=== PATIENT | female | born 2000 | race Hispanic/Latino ===

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

== ENCOUNTER 2018-01-01 13:34 | Emergency (ER) | payer OTHER ==
[~2018-01-01] VITALS: Ht 165.1 cm; Wt 63.5 kg
[~2018-01-01 13:34] MED LIST changes: +CLEOCIN HCL300 M1 PO; +MOBIC15 M1 PO
[2018-01-01 13:42] VITALS: BP 114/77
--- NOTE | 2018-01-01 16:06 | ED GENERAL ADULT ---
History of Present Illness General Chief Complaint: Female Urogenital Problems Stated Complaint: BURNING W/URINATION, VAG BLEEDING X 2 WEEKS Source: patient Exam Limitations: no limitations Vital Signs & Intake/Output Vital Signs & Intake/Output Vital Signs Date Time Temp Pulse Resp B/P B/P Pulse O2 O2 Flow FiO2 Mean Ox Delivery Rate 01/01 1627 98 18 97 Room Air 01/01 1433 99 Room Air 01/01 1342 96.7 107 18 114/77 98 Room Air Room Air ED Intake and Output 01/02 0000 01/01 1200 Intake Total Output Total Balance Patient 140 lb Weight Weight Reported by Patient Measurement Method Allergies Coded Allergies: No Known Allergies (12/03/17) Reconcile Medications Phenazopyridine HCl (Pyridium) 100 MG TABLET 1 TAB PO TID PRN DYSURIA Triage Note: PT TO ED WITH C/O "I HAVE MY PERIOD FOR 2 WEEKS, AND IT VALDIVIA WHEN I PEE". URINE CUP GIVEN. Triage Nurses Notes Reviewed? yes Onset: Gradual Duration: week(s): (3-4), changing over time, continues in ED Timing: recent history Injury Environment: home Severity: mild, moderate Severity Numbers: 6 No Modifying Factors: none LMP (ages 10-50): now : No Patient currently breastfeeds: No HPI: 17-year-old female with no past medical history present for evaluation of dysuria and vaginal spotting. Patient states that for the past 3 weeks she has been spotting. She states that about a month ago she stopped receiving the depO shot. She has a history of dysfunctional uterine bleeding. She states that she is using one to 2 pads per day for the spotting. She denies any pelvic pain vaginal discharge back pain fever. She also reports he's been having intermittent dysuria. She states that she will notice pain at the end when she is finished urinating that'll last for several seconds and then go away. She describes as a burning pain. No frequency urgency. Does not happen every time she urinates. (Caden Judd) Past History Travel History Traveled to [place] past 21 day No Medical History Any Pertinent Medical History? see below for history Neurological: NONE EENT: NONE Cardiovascular: NONE Respiratory: NONE Gastrointestinal: NONE Hepatic: NONE Renal: NONE Musculoskeletal: NONE Psychiatric: NONE Endocrine: NONE Blood Disorders: NONE Cancer(s): NONE SUPERVISOR TAPING/Reproductive: NONE Surgical History Surgical History: non-contributory Psychosocial History What is your primary language Egyptian Tobacco Use: Current Daily Use Daily Tobacco Use Amount/Type: => 5 Cigarettes daily ETOH Use: denies use Illicit Drug Use: denies illicit drug use Family History Hx Contributory? No (Caden Judd) Review of Systems Review of Systems Constitutional: Reports: no symptoms. EENTM: Reports: no symptoms. Respiratory: Reports: no symptoms. Cardiovascular: Reports: no symptoms. GI: Reports: no symptoms. Genitourinary: Reports: see HPI, dysuria, pain. Musculoskeletal: Reports: no symptoms. Skin: Reports: no symptoms. Neurological/Psychological: Reports: no symptoms. Hematologic/Endocrine: Reports: no symptoms. Immunologic/Allergic: Reports: no symptoms. All Other Systems: Reviewed and Negative (Caden Judd) Physical Exam Physical Exam General Appearance: well developed/nourished, no apparent distress, alert, awake , thin Head: atraumatic, normal appearance Eyes: Bilateral: normal appearance, PERRL, EOMI. Ears, Nose, Throat: hearing grossly normal Neck: normal inspection, supple, full range of motion Respiratory: normal breath sounds, chest non-tender, no respiratory distress, lungs clear Cardiovascular: regular rate/rhythm, normal peripheral pulses Peripheral Pulses: 2+ radial (R), 2+ radial (L) Gastrointestinal: soft, non-tender Back: normal inspection, normal range of motion, NO cva TENDERNESS Extremities: normal inspection, normal range of motion, no edema Neurologic/Psych: no motor/sensory deficits, awake, alert, oriented x 3, normal gait, normal mood/affect Skin: intact, normal color, warm/dry Core Measures ACS in differential dx? No CVA/TIA Diagnosis: No Sepsis Present: No Sepsis Focused Exam Completed? No (Caden Judd) Progress Differential Diagnoses I considered the following diagnoses in my evaluation of the patient: [UTI, pyelonephritis, intrauterine , ectopic , threatened , PID, dysfunctional uterine bleeding, endometriosis] Plan of Care: Orders Procedure Date/time Status CULTURE,URINE 01/01 UNK Active Add-on Test (ER Only) 01/01 1502 Active Add-on Test (ER Only) 01/01 1420 Active URINE 01/01 1355 Complete URINALYSIS 01/01 1344 Complete Laboratory Tests 01/01/18 1359: Urine Color YEL, Urine Clarity HAZY H, Urine pH 6.0, Ur Specific [place] 1.025, Urine Protein TRACE H, Urine Ketones NEG, Urine Nitrite NEG, Urine Bilirubin NEG, Urine Urobilinogen 0.2, Ur Leukocyte Esterase NEG, Ur Microscopic SEDIMENT EXAMINED, Urine RBC RARE, Urine WBC 1-3 H, Ur Epithelial Cells MOD H, Urine Bacteria MOD H, Urine Mucus MANY H, Urine Hemoglobin LARGE H, Urine Glucose NEG 01/01/18 1355: Urine Test NEGATIVE Microbiology 01/01 UNK URINE ROUT: Urine Culture - RES Patient seen and evaluated. Her urinalysis is negative. She states she's been spotting for several weeks she has a history of similar symptoms. Urine is not showing major signs of infection. There are a large numbers of epithelial cells and only 1-3 white blood cells. No esterase or nitrites. Culture was sent. Patient is having intermittent dysuria does not occur on every time she urinates. A urine culture was sent patient will not be treated with antibiotics at this time. She'll be given a prescription for Pyridium to use as needed. Patient is here with her son and were both also being seen. She declines further blood work. She states she'll follow-up with her MANAGER ERP doctor. Discussed return the cautions advised to rest and drink plenty of fluids. Return with any concerns. Patient appears well she agrees. Initial ED EKG: none (Caden Judd) Departure Departure Disposition: HOME OR SELF CARE Condition: Stable Clinical Impression Primary Impression: Dysuria Referrals: Patient Has No Primary Care Dr (PCP/Family) Additional Instructions: Take Pyridium as directed. Drink plenty of fluids. Make a follow-up with your MANAGER ERP doctor as soon as possible. Monitor symptoms and return with any concerns. Departure Forms: Customer Survey General Discharge Information Prescriptions: Current Visit Scripts Phenazopyridine HCl (Pyridium) 1 TAB PO TID PRN DYSURIA #6 TAB (Caden Judd) PA/MEAT CARRIER Co-Sign Statement Statement: ED Attending supervision documentation- [] I saw and evaluated the patient. I have also reviewed all the pertinent lab results and diagnostic results. I agree with the findings and the plan of care as documented in the PA's/MEAT CARRIER's documentation. [X] I have reviewed the ED Record and agree with the PA's/MEAT CARRIER's documentation. [] Additions or exceptions (if any) to the PAs/MEAT CARRIER's note and plan are summarized below: [] (Sharon ARDON,Emma) Critical Care Note Critical Care Note Critical Care Time: non-applicable (Rudyd MCINTYRE,Caden)
[2018-01-01] MEDS ORDERED: PYRIDIUM100 M1 PO (16:10)
== END 2018-01-01 16:28 ==
LOC: ERH 13:34
DX: R30.0 Dysuria (principal); N93.9 Abnormal uterine and vaginal bleeding, unspecified
CPT/HCPCS: 81001; 81025; 87086

== ENCOUNTER 2018-02-01 12:49 | Emergency (ER) | payer OTHER ==
[~2018-02-01] VITALS: Ht 165.1 cm; Wt 63.5 kg
[~2018-02-01 12:49] MED LIST changes: +GI COCKTAIL PO; +MEDROL4 M2 PO; +PYRIDIUM100 M1 PO
--- NOTE | 2018-02-01 13:22 | ED GENERAL ADULT ---
History of Present Illness General Chief Complaint: Lower Extremity Injury Stated Complaint: ?BILATERAL THIGH PAIN Source: patient Exam Limitations: no limitations Vital Signs & Intake/Output Vital Signs & Intake/Output Vital Signs Date Time Temp Pulse Resp B/P B/P Pulse O2 O2 Flow FiO2 Mean Ox Delivery Rate 02/01 1310 97.6 93 16 108/75 100 Room Air Allergies Coded Allergies: No Known Allergies (12/03/17) Triage Note: PT STATES SHE HAS PAIN TO THE LEFT UPPER THIGH. PT STATES SHE TOOK A MUSCLE RELAXER. PT STATES THAT SHE CANT SIT ON IT.. PT DENIES TRAUMA. PT ALSO STATES HER RIGHT THIGH. PT DENIES CONTROL. ONSET 2 WEEKS AGO. Triage Nurses Notes Reviewed? yes Onset: Gradual Duration: week(s): (2) Timing: no prior history Injury Environment: home Severity: moderate Severity Numbers: 6 Modifying Factors: Improves With: immobilization. Worsens With: movement. : No Patient currently breastfeeds: No HPI: Patient is a 17-year-old female presenting to the emergency department with chief complaint of bilateral posterior thigh pain and low back pain is been going on for 2 weeks. Movement makes the pain worse nothing seems to make it better. Patient denies any nausea or vomiting fevers chills chest pain or shortness of breath. No abdominal pain. Denies any urinary frequency or urgency or dysuria. She took one dose of Tylenol yesterday without relief. She then sat a dose of a muscle relaxer that someone gave her this morning without relief. Pain is tight and spasming in nature. Currently mild to moderate. Denies any new workout plans, no excessive lifting. Denies any Jeri weakness numbness or tingling. (Jordan MCINTYRE,Gabi) Reconcile Medications Methocarbamol (Robaxin) 500 MG TABLET 1 TAB PO TID PRN MUSCLE SPASMS Naproxen (Naprosyn) 500 MG TABLET 1 TAB PO BID PRN PAIN (Sharon ARDON,Emma) Past History Travel History Traveled to [place] past 21 day No Medical History Any Pertinent Medical History? see below for history Neurological: NONE EENT: NONE Cardiovascular: NONE Respiratory: NONE Gastrointestinal: NONE Hepatic: NONE Renal: NONE Musculoskeletal: NONE Psychiatric: NONE Endocrine: NONE Blood Disorders: NONE Cancer(s): NONE PR INTERN/Reproductive: NONE Surgical History Surgical History: non-contributory Psychosocial History What is your primary language Indonesian Tobacco Use: Current Daily Use Daily Tobacco Use Amount/Type: => 5 Cigarettes daily Family History Hx Contributory? No (Gabi Santos) Review of Systems Review of Systems Constitutional: Reports: no symptoms. Comments Review of systems: See HPI, All other systems negative. Constitutional, no chills fever or weight loss HEENT: No visual changes no sore throat no congestion Cardiovascular: No chest pain ,palpitation , orthopnea or ankle swelling Skin, no jaundice no rashes Respiratory: No dyspnea cough sputum or hemoptysis GI: No nausea no vomiting : No dysuria No hematuria Muscle skeletal: no neck pain, Neurologic: No numbness no confusion NO HEADACHES Psych: No stress anxiety or depression,. Heme/endocrine: No bruising no bleeding no polyuria or polydipsia Immunology: No splenectomy or history of AIDS (Gabi Santos) Physical Exam Physical Exam General Appearance: well developed/nourished, no apparent distress, alert, awake , comfortable Comments: Well-developed well-nourished person in no acute distress HEENT: Normal inspection Neck: Atraumatic, normocephalic Back: Mild tenderness to palpation in the lumbar paraspinal muscles bilaterally. No midline tenderness. Negative straight leg raise bilaterally. Mild reproducible pain on the posterior aspect of thighs bilaterally. No signs of trauma. Cardiovascular: Regular rate and rhythms no murmurs rubs or gallops, normal JVP Respiratory: Chest nontender. No respiratory distress.breath sounds clear to auscultation bilaterally Abdomen: Soft, nontender nondistended, no appreciable organomegaly. Normal bowel sounds. No ascites Extremity: No edema, no calf tenderness to palpation, normal and equal pulses. Pain in the posterior aspect of the legs with back flexion. Neuro: Alert oriented x3, motor sensory normal Skin: No appreciable rash on exposed skin, skin is warm and dry. Psych: Mood and affect is normal, memory and judgment is normal. Core Measures ACS in differential dx? No CVA/TIA Diagnosis: No Sepsis Present: No Sepsis Focused Exam Completed? No (Gabi Santos) Progress Differential Diagnoses I considered the following diagnoses in my evaluation of the patient: Muscle strain, muscle spasm, sciatica, herniated disc Plan of Care: Orders Procedure Date/time Status URINE 02/01 1322 Complete URINALYSIS 02/01 1322 Complete Laboratory Tests 02/01/18 1330: Urinalysis LIGHT H, Urine Color YEL, Urine Clarity HAZY H, Urine pH 6.0, Ur Specific [place] 1.025, Urine Protein NEG, Urine Ketones NEG, Urine Nitrite NEG, Urine Bilirubin NEG, Urine Urobilinogen 0.2, Ur Leukocyte Esterase NEG, Ur Microscopic SEDIMENT EXAMINED, Urine RBC RARE, Urine WBC RARE, Ur Epithelial Cells MANY H, Urine Bacteria RARE H, Urine Mucus MANY H, Urine Hemoglobin NEG , Urine Glucose NEG, Urine Test NEGATIVE 02/01/2018 1:32:20 PM WELLS criteria is low risk FOR DVT. 02/01/2018 2:05:20 PM patient is feeling improved after Toradol. Patient will be sent home on anti-inflammatories. Low risk for Wells criteria. No signs of rhabdo. No protein in the urine. Patient will follow up with PCP for any worsening symptoms or concerns. Initial ED EKG: none (Gabi Santos) Departure Departure Time of Disposition: 1406 Disposition: HOME OR SELF CARE Condition: Stable Clinical Impression Primary Impression: Muscle strain Referrals: Patient Has No Primary Care Dr (PCP/Family) Additional Instructions: Follow-up with your primary care physician call to make an appointment. See them in follow-up in the next 5-7 days. Return for worsening symptoms or concerns. Take anti-inflammatories on a regular basis for the next 4-5 days. Avoid any excessive heavy lifting. Departure Forms: Customer Survey General Discharge Information Prescriptions: Current Visit Scripts Naproxen (Naprosyn) 1 TAB PO BID PRN PAIN #20 TAB Methocarbamol (Robaxin) 1 TAB PO TID PRN MUSCLE SPASMS #20 TAB (Gabi Santos) PA/PRE OWNED SALES MANAGER Co-Sign Statement Statement: ED Attending supervision documentation- [] I saw and evaluated the patient. I have also reviewed all the pertinent lab results and diagnostic results. I agree with the findings and the plan of care as documented in the PA's/PRE OWNED SALES MANAGER's documentation. [X] I have reviewed the ED Record and agree with the PA's/PRE OWNED SALES MANAGER's documentation. [] Additions or exceptions (if any) to the PAs/PRE OWNED SALES MANAGER's note and plan are summarized below: [] (Sharon ARDON,Emma) Critical Care Note Critical Care Note Critical Care Time: non-applicable (Jordan MCINTYREGabi)
[2018-02-01] MEDS ORDERED: ROBAXIN500 M1 PO (14:09)
[2018-02-01] MEDS ORDERED: NAPROSYN500 M1 PO (14:09)
[2018-02-01 14:14] VITALS: BP 106/67
== END 2018-02-01 14:15 ==
LOC: ERH 12:49
DX: S86.811A Strain of other muscle(s) and tendon(s) at lower leg level, right leg, initial encounter (principal); S86.812A Strain of other muscle(s) and tendon(s) at lower leg level, left leg, initial encounter; X58.XXXA Exposure to other specified factors, initial encounter; Y92.9 Unspecified place or not applicable; Y93.9 Activity, unspecified
CPT/HCPCS: 81001; 81025; 96372; J1885

== ENCOUNTER 2018-03-10 | Emergency (ER) | payer OTHER ==
[~2018-03-10] MED LIST changes: +NAPROSYN500 M1 PO; +ROBAXIN500 M1 PO
--- NOTE | 2018-03-10 00:03 | ED CARDIAC/CP/PALPITATIONS ---
History of Present Illness General Chief Complaint: Chest Pain Stated Complaint: CP HURTS WHEN I BREATH Source: patient Exam Limitations: no limitations Vital Signs & Intake/Output Vital Signs & Intake/Output Vital Signs Date Time Temp Pulse Resp B/P B/P Pulse O2 O2 Flow FiO2 Mean Ox Delivery Rate 03/10 0020 97 Room Air 03/10 0011 74 20 109/66 100 Allergies Coded Allergies: No Known Allergies (12/03/17) Reconcile Medications No Known Home Medications Triage Nurses Notes Reviewed? yes Onset: Gradual Duration: day(s):, waxing and waning Timing: recent history Quality/Severity: mild Location: central Radiation: no radiation Activities at Onset: none Prior Chest Pain/Card Workup: no prior chest pain Associated Symptoms: chest tightness, anxiety HPI: 18 yo woman presents with central chest tightness x 2 days intermittently. She notes, "I had chest pain for several hours last night and then fell asleep... I was fine during the day and then tonight it happened again... I felt a tightness in my chest and my anxiety got real bad." She notes worsening pain with deep inspiration. She has no wheeze, cough, fever, chills, weakness. Past History Medical History Any Pertinent Medical History? 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 No Review of Systems Review of Systems Constitutional: Reports: no symptoms. EENTM: Reports: no symptoms. Respiratory: Reports: no symptoms. Cardiovascular: Reports: no symptoms. GI: Reports: no symptoms. Genitourinary: Reports: no symptoms. Musculoskeletal: Reports: no symptoms. Skin: Reports: no symptoms. Neurological/Psychological: Reports: no symptoms. Hematologic/Endocrine: Reports: no symptoms. Immunologic/Allergic: Reports: no symptoms. All Other Systems: Reviewed and Negative Physical Exam Physical Exam General Appearance: well developed/nourished, anxious Head: atraumatic, normal appearance Eyes: Bilateral: normal appearance. Ears, Nose, Throat: normal pharynx, normal ENT inspection Neck: normal inspection, supple, full range of motion Respiratory: normal breath sounds, chest non-tender, no respiratory distress, quiet respiration Cardiovascular: regular rate/rhythm Gastrointestinal: normal bowel sounds, soft, non-tender Back: normal inspection, normal range of motion Extremities: normal inspection, normal capillary refill, normal range of motion, no edema Neurologic/Psych: no motor/sensory deficits, awake, alert, oriented x 3 Skin: intact, normal color, warm/dry Core Measures ACS in differential dx? No CVA/TIA Diagnosis No Sepsis Present: No Sepsis Focused Exam Completed? No Progress Differential Diagnosis: anxiety vs costochondritis vs other. Plan of Care: Orders Procedure Date/time Status TROPONIN LEVEL 03/10 23 Complete HUMAN BETA HCG SCREEN 03/10 23 Complete D-DIMER 03/10 23 Complete COMPREHENSIVE METABOLIC PANEL 03/10 23 Complete CBC WITHOUT DIFFERENTIAL 03/10 23 Complete EKG 03/10 2018 Active Laboratory Tests 03/10/18 0032: Anion Gap 11, Estimated GFR > 60, BUN/Creatinine Ratio 14.3, Glucose 101 H, Calcium 9.1, Total Bilirubin 0.3, AST 12 L, ALT 17, Alkaline Phosphatase 76, Troponin I < 0.01, Total Protein 7.3, Albumin 4.0, Globulin 3.3, Albumin/ Globulin Ratio 1.2, Total Beta HCG NEGATIVE, D-Dimer High Sensitivty < 200, CBC w Diff NO MAN DIFF REQ, RBC 4.03 L, MCV 89.2, MCH 29.8, MCHC 33.5, RDW 13.0, MPV 9.5, Gran % 60.4, Lymphocytes % 27.3, Monocytes % 6.7, Eosinophils % 5.1 H, Basophils % 0.5, Absolute Granulocytes 5.9, Absolute Lymphocytes 2.6, Absolute Monocytes 0.7 H, Absolute Eosinophils 0.5, Absolute Basophils 0 Diagnostic Imaging: Viewed by Me: Radiology Read. Discussed w/RAD: Radiology Read. CXR Impression: PATIENT: MONICA MEDINA PRESENT AGE: 18 PATIENT ACCOUNT NO: [id number] : 98 LOCATION: [facility] ORDERING PHYSICIAN: Chino Kothari MD SERVICE DATE: 03/10/18 EXAM TYPE: RAD - XRY- CHEST XRAY, TWO VIEWS EXAMINATION: XR CHEST CLINICAL INFORMATION: Chest pain COMPARISON: None TECHNIQUE: 2 views of the chest were obtained. FINDINGS: The lungs are well expanded. There is no focal consolidation, edema, or effusion. No pneumothorax. The cardiomediastinal silhouette is within normal limits. No acute osseous abnormality. IMPRESSION: No acute pulmonary finding. DICTATED BY: Mason Dempsey MD DATE/TIME DICTATED:03/10/18145 ARMHOLE BASTER HAND: TUAN DATE/TIME TRANSCRIBED:03/10/18145 CONFIDENTIAL, DO NOT COPY WITHOUT APPROPRIATE AUTHORIZATION. <Electronically signed in Other Vendor System> SIGNED BY: Mason Dempsey MD 03/10/18 0150 Initial ED EKG: normal axis, normal intervals, normal p-waves, normal QRS complex, normal sinus rhythm Departure Departure Disposition: HOME OR SELF CARE Condition: Stable Clinical Impression Primary Impression: Chest pain Referrals: Patient Has No Primary Care Dr (PCP/Family) Departure Forms: Customer Survey General Discharge Information Prescriptions: Current Visit Scripts No Known Home Medications Comments 03/10/18, 2:01... discussed with patient at length, pt feeling well, benign xrays/ labs, pt safe for discharge. pt referred to primary care. Critical Care Note Critical Care Note Critical Care Time: non-applicable
[2018-03-10 00:39] LABS: ABSOLUTE BASOPHIL COUNT 0 /CUMM (0.0-0.2); ABSOLUTE EOSINOPHIL COUNT 0.5 /CUMM (0.0-0.7); ABSOLUTE GRANULOCYTE CT 5.9 /CUMM (1.4-6.5); ABSOLUTE LYMPH COUNT 2.6 /CUMM (1.2-3.4); ABSOLUTE MONOCYTE COUNT 0.7 /CUMM (0.10-0.60); BASOPHIL % 0.5 % (0.0-2.0); EOSINOPHIL % 5.1 % (0-5); GRANULOCYTE % 60.4 % (42.2-75.2); HEMATOCRIT 35.9 % (37-47); MEAN CORPUSCULAR HGB 29.8 PG (27.0-31.0); MEAN CORPUSCULAR HGB CONC 33.5 G/DL (33.0-37.0); MEAN CORPUSCULAR VOLUME 89.2 FL (81.0-99.0); MEAN PLATELET VOLUME 9.5 FL (7.4-10.4); PLATELET COUNT 207 /CUMM (130-400); RED BLOOD CELL CT 4.03 /CUMM (4.20-5.40); WHITE BLOOD CELL COUNT 9.7 /CUMM (4.8-10.8)
--- NOTE | 2018-03-10 01:50 | RADIOLOGY REPORT ---
EXAMINATION: XR CHEST CLINICAL INFORMATION: Chest pain COMPARISON: None TECHNIQUE: 2 views of the chest were obtained. FINDINGS: The lungs are well expanded. There is no focal consolidation, edema, or effusion. No pneumothorax. The cardiomediastinal silhouette is within normal limits. No acute osseous abnormality. IMPRESSION: No acute pulmonary finding.
[2018-03-10 02:18] VITALS: BP 118/72
[2018-03-18] MEDS ORDERED: MOBIC15 M1 PO (13:27)
[2018-03-18] MEDS ORDERED: XANAX0.25 M1 PO (13:29)
[2018-03-22] MEDS ORDERED: AUGMENTIN 875-1 EACH PO (08:41)
[2018-03-22] MEDS ORDERED: PERCOCET 5-3251 EACH PO (08:41)
[2018-04-03] MEDS ORDERED: PERCOCET 5-3251 EACH PO (14:27)
[2018-04-09] MEDS ORDERED: AUGMENTIN 875-1 EACH PO (15:28)
[2018-07-04] MEDS ORDERED: MEDROL4 M2 PO (18:15)
[2018-07-04] MEDS ORDERED: CYCLOBENZAPRINE10 M1 PO (18:15)
[2018-07-04] MEDS ORDERED: IBUPROFEN800 M1 PO (18:15)
[2018-07-06] MEDS ORDERED: PERCOCET 5-3251 EACH PO (14:46)
== END 2018-03-10 02:20 ==
LOC: ERH
PROVIDERS: Pediatrics
DX: R07.89 Other chest pain (principal)
CPT/HCPCS: 71046; 93005; 93010

== ENCOUNTER 2018-03-29 10:37 | Inpatient (IN) | payer OTHER ==
[~2018-03-29] VITALS: Ht 167.6 cm; Wt 61.3 kg
[~2018-03-29 10:37] MED LIST changes: +PERCOCET 5-3251 EACH PO; +XANAX0.25 M1 PO
--- NOTE | 2018-03-29 11:31 | ED UPPER/LOWER EXTREMITY COMPL ---
See Addendum History of Present Illness General Chief Complaint: Lower Extremity Problems Stated Complaint: RIGHT UPPER LEG PAIN COMES AND GOES X1 YEAR Source: patient Exam Limitations: no limitations Vital Signs & Intake/Output Vital Signs & Intake/Output Vital Signs Date Time Temp Pulse Resp B/P B/P Pulse O2 O2 Flow FiO2 Mean Ox Delivery Rate 03/29 1645 98.3 97 20 123/81 100 03/29 1258 62 18 115/73 99 Room Air 03/29 1050 98.1 78 18 114/68 97 Room Air Allergies Coded Allergies: No Known Allergies (12/03/17) Reconcile Medications Alprazolam (Xanax) 0.25 MG TABLET 1 TAB PO DAILY PRN anxiety Amoxicillin/Potassium Clav (Augmentin 875-125 Tablet) 875 MG-125 MG TABLET 1 TAB PO BID PNEUMONIA Meloxicam (Mobic) 15 MG TABLET 1 TAB PO DAILY PRN pain Oxycodone HCl/Acetaminophen (Percocet 5-325 MG Tablet) 5 MG-325 MG TABLET 1-2 TAB PO Q6P PRN PAIN Triage Note: 18 YEAR OLD FEMALE STATES THAT SHE HAS BEEN HAVING INTERMITTANT R HIP ACHING OVER THE PAST YEAR, STARTED TO BOTHER HER AGAIN 2 DAYS AGO. DECLINES MEDS AT TRIAGE Triage Nurses Notes Reviewed? yes Onset: Abrupt Duration: 1 year Timing: recent history Severity: moderate, severe Pain/Injury Location: Right: Hip. No Modifying Factors: none : No Patient currently breastfeeds: No HPI: 18-year-old female comes into the emergency room for further evaluation of right hip pain. Patient reports that this is been going on for about a year. She has pain located from the upper aspect of her right hip that radiates down her right thigh. Denies any numbness or tingling. Denies any associated low back pain. Patient was recently seen here 3 times for chest pains. She was found to have a pneumonia and was started on oral antibiotics. She had a negative d-dimer and had multiple chest pain workup which were unremarkable. She reports that she is still experiencing some chest pain symptoms at times and she ran out of the oxycodone that she was on which was helping with the pain. She has an appointment with pulmonary doctor for follow-up. (Ben MCINTYRE,Cole) Past History Travel History Traveled to [place] past 21 day No Medical History Any Pertinent Medical History? see below for history Neurological: NONE EENT: NONE Cardiovascular: NONE Respiratory: NONE Gastrointestinal: NONE Hepatic: NONE Renal: NONE Musculoskeletal: NONE Psychiatric: NONE Endocrine: NONE Blood Disorders: NONE Cancer(s): NONE TREASURY SPECIALIST/Reproductive: NONE Surgical History Surgical History: non-contributory Psychosocial History What is your primary language Spanish Tobacco Use: Never used ETOH Use: denies use Illicit Drug Use: denies illicit drug use Family History Hx Contributory? No (Cole Jama) Review of Systems Review of Systems Constitutional: Reports: no symptoms. EENTM: Reports: no symptoms. Respiratory: Reports: no symptoms. Cardiovascular: Reports: see HPI. Gastrointestinal/Abdominal: Reports: no symptoms. Genitourinary: Reports: no symptoms. Musculoskeletal: Reports: see HPI. Skin: Reports: no symptoms. Neurological/Psychological: Reports: no symptoms. Hematologic/Endocrine: Reports: no symptoms. Immunological: Reports: no symptoms. All Other Systems: Reviewed and Negative (Cole Jama) Physical Exam Physical Exam General Appearance: well developed/nourished, mild distress Head: atraumatic Eyes: Bilateral: normal appearance. Ears, Nose, Throat: normal ENT inspection, hearing grossly normal Neck: normal inspection Cardiovascular/Respiratory: normal breath sounds, regular rate/rhythm, no respiratory distress Back: normal inspection Hip Right: normal range of motion, normal inspection, soft tissue tenderness, Lidocaine patch and platelets Neurologic/Tendon: normal sensation, normal motor functions, normal tendon functions, responds to pain, no evidence tendon injury Skin: intact, normal color, warm/dry Diagram Legs Front/Back 1) (Cole Jama) Progress Differential Diagnosis: contusion, dislocation, fracture, sprain, tendon injury, pe, costonchondritits, pericarditis Plan of Care: Orders Procedure Date/time Status Heart Healthy Diet 03/30 B Active Add-on Test (ER Only) 03/29 1726 Active ED Holding Orders 03/29 1715 Active Admit to inpatient 03/29 1715 Active Vital Signs 03/29 1715 Active Code Status 03/29 1715 Active Patient Data 03/29 1640 Active Patient Data 03/29 1636 Active Add-on Test (ER Only) 03/29 1555 Active Add-on Test (ER Only) 03/29 1530 Active US-EXT BILAT VENOUS DOPPLER 03/29 1517 Active PARTIAL THROMBOPLASTIN TIME 03/29 1246 Complete PROTHROMBIN TIME 03/29 1246 Complete D-DIMER 03/29 1246 Complete TROPONIN LEVEL 03/29 1240 Complete COMPREHENSIVE METABOLIC PANEL 03/29 124 Complete CBC WITHOUT DIFFERENTIAL 03/29 124 Complete EKG 03/29 124 Active Current Medications Sig/Stephanie Start time Last Medication Dose Stop Time Status Admin Heparin Sodium 25,000 UNIT Q24H 03/29 1530 UNVr 03/29 (Porcine) 1628 (Heparin) Sodium Chloride 500 ML Laboratory Tests 03/29/18 1246: Anion Gap 14, Estimated GFR > 60, BUN/Creatinine Ratio 17.5, Glucose 98, Calcium 9.8, Total Bilirubin 0.4, AST 14, ALT 16, Alkaline Phosphatase 77, Troponin I < 0.01, Total Protein 8.1, Albumin 4.4, Globulin 3.7, Albumin/Globulin Ratio 1.2, PT 13.9 H, INR 1.27 H, APTT 33, D-Dimer High Sensitivty 294 H, CBC w Diff NO MAN DIFF REQ, RBC 4.11 L, MCV 87.7, MCH 29.5, MCHC 33.7, RDW 13.1, MPV 9.2, Gran % 62.0, Lymphocytes % 26.4, Monocytes % 7.1, Eosinophils % 4.1, Basophils % 0.4, Absolute Granulocytes 3.6, Absolute Lymphocytes 1.5, Absolute Monocytes 0.4 , Absolute Eosinophils 0.2, Absolute Basophils 0 03/29/18 1245: Total Beta HCG Cancelled 03/29/18 1130: Urine Test Cancelled 03/29/18 1114: TSH Cancelled Diagnostic Imaging: Viewed by Me: Radiology Read. Discussed w/RAD: Radiology Read. Radiology Impression: PATIENT: MONICA MEDINA PRESENT AGE: 18 PATIENT ACCOUNT NO: [id number] : 98 LOCATION: [facility] ORDERING PHYSICIAN: Cole MCINTYRE SERVICE DATE: 03/29/18 EXAM TYPE: CAT - CTA CHEST-PULMONARY EMBOLISM EXAMINATION: CT ANGIOGRAM CHEST WITHOUT AND WITH CONTRAST (CT PULMONARY ANGIOGRAM FOR PE) CLINICAL INFORMATION: Left-sided chest pain for weeks, recently here for pneumonia. COMPARISON: Noncontrast CT of the chest done on 03/22/2018. TECHNIQUE: Prior to contrast administration, noncontrast localization images were obtained. Subsequently, multidetector volumetric imaging was performed from the thoracic inlet to below the diaphragms following the administration of 60 mL Optiray 320 intravenous contrast. No contrast reaction reported. Sagittal, coronal, and MIP oblique sagittal reformatted images were obtained on the CT workstation, uploaded to PACS, and reviewed. Total exam dose-length product 174 mGy-cm. FINDINGS: QUALITY OF STUDY/ CONTRAST BOLUS: Satisfactory PULMONARY ARTERIES: There is no central or segmental pulmonary emboli identified. However, at left lower lobe, there are 2 subtle intraluminal filling defects identified within the subsegmental branches of the left lower lobar pulmonary artery (see the gao images), consistent with subtle pulmonary embolism. THORACIC AORTA: No aneurysm or dissection. LUNG: There is a cavitary lesion identified within the posterior superior aspect of left upper lobe of the lung, currently measures 1.6 x 1.2 cm, previously measured 2.3 x 2.4 cm. The second cavitary lesion at left lower lobe of the lung posteromedially currently measures 2.5 x 1.9 cm, previously measured 3.3 x 2.2 cm. The remainder of the lung gonzalez remain clear. The tracheobronchial tree appears patent. PLEURA: No pleural effusion or pneumothorax. MEDIASTINUM: Normal heart size. No pericardial effusion. No hilar or mediastinal lymphadenopathy. No evidence of septal bowing or right heart strain. Small linear soft tissue density is noted within the anterior mediastinum, most consistent with residual thymic tissue. CHEST WALL/AXILLA: No axillary or internal mammary lymphadenopathy. OSSEOUS STRUCTURES: No acute or suspicious osseous abnormality. UPPER ABDOMEN: Unremarkable. No reflux of contrast into the hepatic veins to suggest elevated right heart pressures. IMPRESSION: 1. There is no central or segmental pulmonary emboli identified. However, at left lower lobe, there are 2 subtle intraluminal filling defects visualized within the subsegmental branches of the left lower lobar pulmonary artery, consistent with subtle pulmonary embolism. 2. Previously documented cavitary lesion seen at left upper and left lower lobe of the lung shows interval decrease in size since most recent prior noncontrast CT of the chest done on 03/22/2018. 3. No other significant interval change. This critical result was discussed with FRANCISCO JAVIER Hart at 2:56 PM on 03/29/2018 and it was ascertained that the content and urgency of the report was understood at the time of direct communication. VTE: Positive DICTATED BY: Gin Roberts MD DATE/TIME DICTATED:03/29/181431 GOVERNMENT GAUGER:TUAN DATE/TIME TRANSCRIBED:03/29/181431 CONFIDENTIAL, DO NOT COPY WITHOUT APPROPRIATE AUTHORIZATION. <Electronically signed in Other Vendor System> SIGNED BY: Gin Roberts MD 03/29/18 1501, PATIENT: MONICA MEDINA PRESENT AGE: 18 PATIENT ACCOUNT NO: [id number] : 98 LOCATION: [facility] ORDERING PHYSICIAN: Cole MCINTYRE SERVICE DATE: 03/29/181129 EXAM TYPE: RAD - XRY-HIP 2-3 VIEWS, RIGHT EXAMINATION: XR HIP, RIGHT CLINICAL INFORMATION: Right hip pain. COMPARISON: None. TECHNIQUE: Two views of the right hip. FINDINGS: Bones and soft tissues are normal. No fracture. Alignment is anatomic. Hip joint space is maintained. IMPRESSION: Unremarkable radiographic appearance of the right hip. DICTATED BY: Gin Roberts MD DATE/ TIME DICTATED:03/29/181225 GOVERNMENT GAUGER:TUAN DATE/TIME TRANSCRIBED: 03/29/181225 CONFIDENTIAL, DO NOT COPY WITHOUT APPROPRIATE AUTHORIZATION. < Electronically signed in Other Vendor System> SIGNED BY: Gin Roberts MD 03/29/18 1230 Initial ED EKG: normal sinus rhythm, rate (59), ST elevation likely consistent with early repolarization, appears unchanged from previous EKG, reviewed with Dr. Hammonds, (Ben MCINTYRE,Cole) Departure Departure Disposition: HOME OR SELF CARE Condition: Stable Clinical Impression Primary Impression: Pulmonary embolism Secondary Impressions: Iliotibial band syndrome of right side, Pneumonia Referrals: Yesy ARDON,Cortes Dyer Patient Has No Primary Care Dr (PCP/Family) Additional Instructions: Take ibuprofen for pain. Take Percocet as prescribed. Follow-up with physical therapy. Return if any concerns worsening symptoms. Please go over all results of today's visit with your primary care doctor. Contact your primary care doctor to let them know you were here in the emergency room. There may be nonspecific findings which may not be related to your visit today here in the emergency room but may require further evaluation and chronic monitoring by your primary care doctor. If you had a laceration today the chance of foreign body always remains. You should follow-up with your primary care doctor for recheck in 3-5 days for a wound check. If you had an x-ray done there is a chance that a fracture could have been missed on initial read and you should follow-up with your primary care doctor for repeat x-rays if symptoms persist. If your blood pressure was elevated here in the emergency room please have rechecked by our primary care doctor within the next 48. If you were prescribed a narcotic here in the emergency room or any type of controlled substances you're not allowed to drive while taking this medication or operate any type of heavy machinery. Narcotics can make you feel lightheaded dizziness nausea and can cause constipation. You may need to cook pickled meat a stool softener. Thank you for choosing [facility] emergency room. Please return to the emergency room immediately if you have any other concerns worsening of symptoms. Departure Forms: Customer Survey General Discharge Information (Cole Jama) Admission Note Spoke With: Shimon Bob MD Documentation of Exam: Documentation of any treatments & extenuating circumstances including Concerns Regarding Discharge (functional status, medication knowledge or non-compliance, living conditions, etc.) that warrant an admission rather than observation: [The patient needs admission for anticoagulation, pulmonary consultation, consider hematology consultation] I've seen and personally examined the patient. She is a 18-year-old female presents several visits for ongoing left lower chest pain. Well's score is low risk, PERC score is negative, and she had a negative d-dimer. Because the pain has persisted for some time, CTA was done which reveals subsegmental pulmonary embolism, she is being admitted to the hospital for further care. (Hank Hammonds DO)
--- NOTE | 2018-03-29 12:30 | RADIOLOGY REPORT ---
EXAMINATION: XR HIP, RIGHT CLINICAL INFORMATION: Right hip pain. COMPARISON: None. TECHNIQUE: Two views of the right hip. FINDINGS: Bones and soft tissues are normal. No fracture. Alignment is anatomic. Hip joint space is maintained. IMPRESSION: Unremarkable radiographic appearance of the right hip.
[2018-03-29 13:03] LABS: ABSOLUTE BASOPHIL COUNT 0 /CUMM (0.0-0.2); ABSOLUTE EOSINOPHIL COUNT 0.2 /CUMM (0.0-0.7); ABSOLUTE GRANULOCYTE CT 3.6 /CUMM (1.4-6.5); ABSOLUTE LYMPH COUNT 1.5 /CUMM (1.2-3.4); ABSOLUTE MONOCYTE COUNT 0.4 /CUMM (0.10-0.60); BASOPHIL % 0.4 % (0.0-2.0); EOSINOPHIL % 4.1 % (0-5); HEMATOCRIT 36.1 % (37-47); MEAN CORPUSCULAR HGB 29.5 PG (27.0-31.0); MEAN CORPUSCULAR HGB CONC 33.7 G/DL (33.0-37.0); MEAN CORPUSCULAR VOLUME 87.7 FL (81.0-99.0); MEAN PLATELET VOLUME 9.2 FL (7.4-10.4); PLATELET COUNT 289 /CUMM (130-400); RBC DISTRIBUTION WIDTH 13.1 % (11.5-14.5); RED BLOOD CELL CT 4.11 /CUMM (4.20-5.40); WHITE BLOOD CELL COUNT 5.9 /CUMM (4.8-10.8)
--- NOTE | 2018-03-29 15:01 | CT SCAN REPORT ---
EXAMINATION: CT ANGIOGRAM CHEST WITHOUT AND WITH CONTRAST (CT PULMONARY ANGIOGRAM FOR PE) CLINICAL INFORMATION: Left-sided chest pain for weeks, recently here for pneumonia. COMPARISON: Noncontrast CT of the chest done on 03/22/2018. TECHNIQUE: Prior to contrast administration, noncontrast localization images were obtained. Subsequently, multidetector volumetric imaging was performed from the thoracic inlet to below the diaphragms following the administration of 60 mL Optiray 320 intravenous contrast. No contrast reaction reported. Sagittal, coronal, and MIP oblique sagittal reformatted images were obtained on the CT workstation, uploaded to PACS, and reviewed. Total exam dose-length product 174 mGy-cm. FINDINGS: QUALITY OF STUDY/CONTRAST BOLUS: Satisfactory PULMONARY ARTERIES: There is no central or segmental pulmonary emboli identified. However, at left lower lobe, there are 2 subtle intraluminal filling defects identified within the subsegmental branches of the left lower lobar pulmonary artery (see the gao images), consistent with subtle pulmonary embolism. THORACIC AORTA: No aneurysm or dissection. LUNG: There is a cavitary lesion identified within the posterior superior aspect of left upper lobe of the lung, currently measures 1.6 x 1.2 cm, previously measured 2.3 x 2.4 cm. The second cavitary lesion at left lower lobe of the lung posteromedially currently measures 2.5 x 1.9 cm, previously measured 3.3 x 2.2 cm. The remainder of the lung gonzalez remain clear. The tracheobronchial tree appears patent. PLEURA: No pleural effusion or pneumothorax. MEDIASTINUM: Normal heart size. No pericardial effusion. No hilar or mediastinal lymphadenopathy. No evidence of septal bowing or right heart strain. Small linear soft tissue density is noted within the anterior mediastinum, most consistent with residual thymic tissue. CHEST WALL/AXILLA: No axillary or internal mammary lymphadenopathy. OSSEOUS STRUCTURES: No acute or suspicious osseous abnormality. UPPER ABDOMEN: Unremarkable. No reflux of contrast into the hepatic veins to suggest elevated right heart pressures. IMPRESSION: 1. There is no central or segmental pulmonary emboli identified. However, at left lower lobe, there are 2 subtle intraluminal filling defects visualized within the subsegmental branches of the left lower lobar pulmonary artery, consistent with subtle pulmonary embolism. 2. Previously documented cavitary lesion seen at left upper and left lower lobe of the lung shows interval decrease in size since most recent prior noncontrast CT of the chest done on 03/22/2018. 3. No other significant interval change. This critical result was discussed with FRANCISCO JAVIER Hart at 2:56 PM on 03/29/2018 and it was ascertained that the content and urgency of the report was understood at the time of direct communication. VTE: Positive
[2018-03-29 15:58] LABS: PT 13.9 SEC (9.4-12.5); PTT 33 SEC (25-37)
--- NOTE | 2018-03-29 16:45 | History & Physical ---
Esteban ARDON,Charley 03/29/18 5206: General Information and HPI MD Statement: I have seen and personally examined MONICA MEDINA and documented this H&P. The patient is a 18 year old F who presented with a patient stated chief complaint of [chest pain]. Source of Information: patient Exam Limitations: no limitations History of Present Illness: Ms. Medina is a 18-year-old lady with no significant past medical history presents with chest pain that has been going on for the past 2 weeks. She was seen at [facility] multiple times for similar complaint, blood workup and CAT scan chest was done and she was discharged home on pain medications and Augmentin to complete a 14 day course of antibiotics for pneumonia. Patient continues to have the chest pain on and off, 8/10 in intensity when severe. No aggravating or relieving factors. Reports dry cough which is getting better. Denies any shortness of breath or palpitations. Also denies any recent travel, immobility, not on any control medication, quit smoking 2 weeks ago(is to smoke 5-6 since yesterday since age of 13), and unsure about her family history as she is adopted. No recent . So complains of right hip/upper thigh pain that has been going on for almost a year now. Pain is on and off, ranges from 4-8/10 in intensity and sometimes get better with walking. Denies any calf pain or swelling. Allergies/Medications Allergies: Coded Allergies: No Known Allergies (12/03/17) Home Med list Alprazolam (Xanax) 0.25 MG TABLET 1 TAB PO DAILY PRN anxiety Amoxicillin/Potassium Clav (Augmentin 875-125 Tablet) 875 MG-125 MG TABLET 1 TAB PO BID PNEUMONIA Meloxicam (Mobic) 15 MG TABLET 1 TAB PO DAILY PRN pain Oxycodone HCl/Acetaminophen (Percocet 5-325 MG Tablet) 5 MG-325 MG TABLET 1-2 TAB PO Q6P PRN PAIN Past History Travel History Traveled to [place] past 21 day No Medical History Neurological: NONE EENT: NONE Cardiovascular: NONE Respiratory: NONE Gastrointestinal: NONE Hepatic: NONE Renal: NONE Musculoskeletal: NONE Psychiatric: NONE Endocrine: NONE Blood Disorders: NONE Cancer(s): NONE 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 Home Who Do You Live With? spouse Primary Language: [place] Smoking Status: Former Smoker ETOH Use: denies use Illicit Drug Use: marijuana Functional Ability ADLs Independent: dressing, eating, toileting, bathing. Ambulation: independent IADLs Independent: shopping, housework, finances, food prep, telephone, transportation , medication admin. Review of Systems Review of Systems Constitutional: Reports: no symptoms. EENTM: Reports: no symptoms. Cardiovascular: Reports: chest pain. Respiratory: Reports: cough. GI: Reports: no symptoms. Genitourinary: Reports: no symptoms. Musculoskeletal: Reports: joint pain, muscle pain. Skin: Reports: no symptoms. Neurological/Psychological: Reports: no symptoms. Hematologic/Endocrine: Reports: no symptoms. Immunologic/Allergic: Reports: no symptoms. All Other Systems: Reviewed and Negative Exam & Diagnostic Data Last 24 Hrs of Vital Signs/I&O Vital Signs Date Time Temp Pulse Resp B/P B/P Pulse O2 O2 Flow FiO2 Mean Ox Delivery Rate 03/29 1845 99.2 74 18 118/70 100 03/29 1645 98.3 97 20 123/81 100 03/29 1258 62 18 115/73 99 Room Air 03/29 1050 98.1 78 18 114/68 97 Room Air Intake & Output 03/29 1600 03/29 0800 03/29 0000 Intake Total 0 Output Total Balance 0 Intake, Oral 0 Patient 138 lb Weight Physical Exam General Appearance Alert, Oriented X3, anxious, frustrated Skin No Rashes, No Breakdown HEENT Atraumatic, PERRLA, EOMI, Mucous Membr. moist/pink Neck Supple, No JVD Cardiovascular Regular Rate, Normal S1, Normal S2 Lungs Clear to Auscultation, Normal Air Movement Abdomen Normal Bowel Sounds, Soft, No Tenderness Extremities No Clubbing, No Cyanosis, No Edema, Normal Pulses, No Tenderness/ Swelling Last 24 Hrs of Labs/Dano: Laboratory Tests 03/29/18 1816: Troponin I < 0.01 03/29/18 1246: Anion Gap 14, Estimated GFR > 60, BUN/Creatinine Ratio 17.5, Glucose 98, Calcium 9.8, Total Bilirubin 0.4, AST 14, ALT 16, Alkaline Phosphatase 77, Troponin I < 0.01, Total Protein 8.1, Albumin 4.4, Globulin 3.7, Albumin/Globulin Ratio 1.2, 25-OH Vitamin D Total 17.4 L, PT 13.9 H, INR 1.27 H, APTT 33, D-Dimer High Sensitivty 294 H, CBC w Diff NO MAN DIFF REQ, RBC 4.11 L, MCV 87.7, MCH 29.5, MCHC 33.7, RDW 13.1, MPV 9.2, Gran % 62.0, Lymphocytes % 26.4, Monocytes % 7.1, Eosinophils % 4.1, Basophils % 0.4, Absolute Granulocytes 3.6, Absolute Lymphocytes 1.5, Absolute Monocytes 0.4, Absolute Eosinophils 0.2, Absolute Basophils 0, MARCIA Titer Pending, Anti-Nuclear Antibody Pending, HIV 1&2 Ab Western Blot NONREACTIVE 03/29/18 1245: Total Beta HCG Cancelled 03/29/18 1130: Urine Test Cancelled 03/29/18 1114: TSH Cancelled Microbiology 03/29 1908 LOWER RESP: Respiratory Culture - COLB 03/29 1908 LOWER RESP: Gram Stain - COLB Diagnostic Data Other Results XRY-HIP 2-3 VIEWS, RIGHT FINDINGS: Bones and soft tissues are normal. No fracture. Alignment is anatomic. Hip joint space is maintained. IMPRESSION: Unremarkable radiographic appearance of the right hip. CTA CHEST-PULMONARY EMBOLISM IMPRESSION: 1. There is no central or segmental pulmonary emboli identified. However, at left lower lobe, there are 2 subtle intraluminal filling defects visualized within the subsegmental branches of the left lower lobar pulmonary artery, consistent with subtle pulmonary embolism. 2. Previously documented cavitary lesion seen at left upper and left lower lobe of the lung shows interval decrease in size since most recent prior noncontrast CT of the chest done on 03/22/2018. 3. No other significant interval change. US-EXT BILAT VENOUS DOPPLER FINDINGS: Respiratory variation, normal compression and augmented flow are noted throughout the lower extremities. The visualized common femoral vein, superficial femoral vein, profunda femoral vein, popliteal vein and midcalf peroneal and posterior tibial venous segments show no evidence of deep venous thrombosis. There is no Ovalles's cyst. IMPRESSION: No evidence of deep venous thrombosis involving the bilateral lower extremities. Assessment/Plan Assessment: Ms. Medina is a 18-year-old lady with no significant past medical history presents with chest pain that has been going on for the past 2 weeks. And had a slightly elevated d-dimer of 294, CTA was done showing 2 intraluminal filling defects in left lower lobe consistent with subtle pulmonary embolism. Bilateral lower extremity venous Doppler negative for any DVT. Problem list; # Pulmonary embolism # Pneumonia - We'll admit the patient to telemetry floor - Start the patient on IV heparin drip - Obtain echo cardiac - Troponins and EKG 3 - Continue Augmentin for pneumonia (started on 03/22) - Sputum culture - Pain management - We will need further workup as an outpatient to find out the cause of PE. - Patient was very anxious and also tearful on occasion, would benefit from a psych eval. DVT prophylaxis; IV heparin and ALPS Patient is full code As Ranked By This Provider Problem List: 1. Pulmonary embolism Core Measures/Misc (07/21) Acute Coronary Syndrome ACS Diagnosis: No Congestive Heart Failure Congestive Heart Failure Diagnosis No Cerebrovascular Accident CVA/TIA Diagnosis: No VTE (View Protocol) VTE Risk Factors No risk factors No Mechanical VTE Prophylaxis d/t N/A MechProphylax Ordered No VTE Pharm Prophylaxis d/t NA PharmProphylax ordered Sepsis (View protocol) Sepsis Present: No If YES complete Sepsis Event Note If YES complete Sepsis Event Note Colton Qureshi MD 03/29/18 1646: Core Measures/Misc (07/21) Sepsis (View protocol) If YES complete Sepsis Event Note If YES complete Sepsis Event Note Resident Review Statement Resident Statement: examined this patient, discussed with video editing intern, agreed with video editing intern, discussed with family, reviewed EMR data (avail), discussed with nursing , reviewed images, amended to note Other Findings: 18-year-old female with no significant past medical history, presented with chest pain, since past 2 weeks. She has visited [facility]'s emergency department multiple times for similar complaints, and her workup so far never picked up any pulmonary bodies. She was recently discharged on Augmentin and pain medications. She continued to have chest pain, 8/10 in severity, more so when she aches deep breath in, and denies any palpitation, shortness of breath, leg swelling, recent travel, immobility, any other medications including OCPs. She quit smoking 2 weeks ago, and she is not sure about family history of she is adopted per patient herself. Vitals, labs, and imaging as noted above. EKG does not show Rt heart strain or ischemic pattern. Patient is currently being admitted in the telemetry floor for the management of following issues: #Acute pulmonary embolism Patient has already been started on IV heparin in the emergency department. * Admit in telemetry * Monitor vitals, heart rate/rhythm * Echocardiogram * Bilateral lower extremity Doppler * Continue IV heparin * Cardiology consultation * Adequate pain management planned, to be reassessed in the morning #Pneumonia We are continuing Augmentin which she was discharged on 4 ongoing pneumonia started on 03/22. Lower respiratory culture has been ordered. Needs follow-up. #Patient has significant anxiety, her home medication of alprazolam 0.25 mg has been added. Patient is full code, is on heart healthy diet, and DVT prophylaxis is covered by IV heparin. Shimon Bob MD 03/29/18 1819: Core Measures/Misc (07/21) Sepsis (View protocol) If YES complete Sepsis Event Note If YES complete Sepsis Event Note Attending MD Review Statement Attending Statement Attending MD Statement: examined this patient, discuss w/resident/PA/ENVELOPE FOLDING MACHINE OPERATOR, agreed w/resident/PA/ENVELOPE FOLDING MACHINE OPERATOR, reviewed EMR data (avail) Attending Assessment/Plan: 18F PMH anxiety, recently diagnosed cavitary pneumonia on Augmentin, presents with continued chest pain after running out of Oxycodone. She has had diffuse chest pain on and off for a month and has had a workup in the ER on [address] chest done on 03/22 found bilateral cavitary lesions of undetermined etiology. No sputum culture or cytology was sent at the time. She was placed on Augmentin and Oxycodone. She currently only complains of diffuse chest pain. Her cough has improved. A CTA chest was done in the ER today which found bilateral small subsegmental PE. She complains of anxiety regarding her diagnosis but is otherwise well. She has no risk factors for PE. No recent travel. No symptoms or risk factors for TB. EKG is NSR. 1. Bilateral subsegmental PE 2. Bilateral pulmonary cavitary lesions Plan - Admit to telemetry - Heparin drip - Obtain echocardiogram - Send MARCIA, c-anca, ALAN level, vitamin D level, anti-dsDNA antibody level - Continue Augmentin - Pulmonary consult - Sputum culture and cytology - Send HIV - Oxycodone PRN for pain
--- NOTE | 2018-03-29 18:20 | ULTRASOUND REPORT ---
EXAMINATION: US TRIPLEX OF LOWER EXTREMITIES, BILATERAL CLINICAL INFORMATION: 18-year-old female found to have subtle intraluminal filling defect within subsegmental pulmonary arterial branches of the left lower lobe, seen on CTA of the chest done earlier today. Bilateral lower extremity DVT study is requested for further clarification. COMPARISON: CTA of the chest done earlier today. TECHNIQUE: Color-flow triplex imaging with spectral analysis and compression Doppler were performed on the lower extremities. FINDINGS: Respiratory variation, normal compression and augmented flow are noted throughout the lower extremities. The visualized common femoral vein, superficial femoral vein, profunda femoral vein, popliteal vein and midcalf peroneal and posterior tibial venous segments show no evidence of deep venous thrombosis. There is no Ovalles's cyst. IMPRESSION: No evidence of deep venous thrombosis involving the bilateral lower extremities.
[2018-03-29 18:45] VITALS: BP 118/70
[2018-03-29 21:36] VITALS: BP 111/56
[2018-03-29 23:31] LABS: PTT > 120 SEC (25-37)
[2018-03-30 07:00] VITALS: BP 109/61
[2018-03-30 08:34] LABS: ABSOLUTE BASOPHIL COUNT 0 /CUMM (0.0-0.2); ABSOLUTE EOSINOPHIL COUNT 0.2 /CUMM (0.0-0.7); ABSOLUTE GRANULOCYTE CT 2.5 /CUMM (1.4-6.5); ABSOLUTE MONOCYTE COUNT 0.5 /CUMM (0.10-0.60); BASOPHIL % 0.9 % (0.0-2.0); EOSINOPHIL % 4.4 % (0-5); GRANULOCYTE % 47.5 % (42.2-75.2); MEAN CORPUSCULAR HGB 29.9 PG (27.0-31.0); MEAN CORPUSCULAR HGB CONC 33.7 G/DL (33.0-37.0); MEAN CORPUSCULAR VOLUME 88.7 FL (81.0-99.0); MEAN PLATELET VOLUME 9.7 FL (7.4-10.4); PLATELET COUNT 258 /CUMM (130-400); RBC DISTRIBUTION WIDTH 13.2 % (11.5-14.5); RED BLOOD CELL CT 3.94 /CUMM (4.20-5.40); WHITE BLOOD CELL COUNT 5.3 /CUMM (4.8-10.8)
[2018-03-30 08:37] LABS: PTT 65 SEC (25-37)
--- NOTE | 2018-03-30 10:53 | Cons- Cardiology ---
General Information and HPI Consulting Request Date of Consult: 03/30/18 Requested By: Shimon Bob MD History of Present Illness: Jenifer is a 18 year old female with no significant past medical history who has noted chest discomfort intermittently for about three weeks. The discomfort is a mild aching/pressure sensation that began on the left side but progressed to her right side. The discomfort is non-radiating and was associated with shortness of breath and vomiting. The patient was seen in the ER for these symptoms and was noted to have diffuse ST elevations on her ECG along with an irregular heart rhythm. She was started on Mobic for presumed pericarditis and initially felt improved. The patient now returns to the ER for evaluation of a right sided chest discomfort that is worse with deep inhalation. She also reports a right hip pain and thigh discomfort that is more chronic. She denies shortness of breath, lightheadedness or palpitations. At baseline this patient can run. Workup included a chest CT that showed two subtle sub-segmental filling defects consistent with pulmonary embolism. Her LE ultrasound is normal. Her chest CT also disclosed a couple cavitary lesions. Allergies/Medications Allergies: Coded Allergies: No Known Allergies (12/03/17) Home Med List: Alprazolam (Xanax) 0.25 MG TABLET 1 TAB PO DAILY PRN anxiety Amoxicillin/Potassium Clav (Augmentin 875-125 Tablet) 875 MG-125 MG TABLET 1 TAB PO BID PNEUMONIA Meloxicam (Mobic) 15 MG TABLET 1 TAB PO DAILY PRN pain Oxycodone HCl/Acetaminophen (Percocet 5-325 MG Tablet) 5 MG-325 MG TABLET 1-2 TAB PO Q6P PRN PAIN Review of Systems Review of Systems: A review of systems is unremarkable. 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 Home Who Do You Live With? spouse Primary Language: Algerian Smoking Status: Current Some Day Smoker (quit ten days ago) ETOH Use: denies use Illicit Drug Use: marijuana Functional Ability ADLs Independent: dressing, eating, toileting, bathing. Ambulation: independent IADLs Independent: shopping, housework, finances, food prep, telephone, transportation , medication admin. Exam & Diagnostic Data Vital Signs and I&O Vital Signs Date Time Temp Pulse Resp B/P B/P Pulse O2 O2 Flow FiO2 Mean Ox Delivery Rate 03/30 0700 98.4 69 20 109/61 99 03/29 2136 98.0 67 20 111/56 98 03/29 1845 99.2 74 18 118/70 100 03/29 1645 98.3 97 20 123/81 100 03/29 1258 62 18 115/73 99 Room Air 03/29 1050 98.1 78 18 114/68 97 Room Air Intake & Output 03/30 0803/30 0000 03/29 1600 03/29 0000 Intake Total 440 250 0 Output Total Balance 440 250 0 Intake, IV 140 Intake, Oral 300 250 0 Patient 139 lb 138 lb Weight Weight Bed scale Measurement Method Physical Exam: General: WD/WN female in NAD; alert and oriented x 3 HEENT: NC/AT, PERRL, EOMI Neck: no JVD, no carotid bruit Heart: RRR w/o murmur Lungs: clear bilaterally Abdomens: soft, NT, +ve bowel sounds Extremities: no edema Assessment/Plan Assessment/Plan * This patient has rather subtle findings of a subsemental pulmonary embolism. It is not on the side that she describes her chest discomfort and she denies shortness of breath. Nevertheless, she is a smoker and may well have a true PE. She should be anticoagulated on Eliquis for at least three months. Begin at 10mg BID for 7 days and then decrease to 5mg BID. I would take the opportunity to use her initial blood upon presentation to the ER, prior to anticoagulation, to perform a hypercoagulable workup if possible. Would obtain a lupus anticoagulant , antithrombin 3, protein C and protein S. * Obtain an echocardiogram. Consult Acknowledgment - Thank you for your consult request.
--- NOTE | 2018-03-30 11:43 | PN- Att Addend ---
Attending Addendum Attending Brief Note 18F PMH anxiety, recently diagnosed cavitary pneumonia on Augmentin, presents with continued chest pain after running out of Oxycodone. She has had diffuse chest pain on and off for a month and has had a workup in the ER on [address] chest done on 03/22 found bilateral cavitary lesions of undetermined etiology. No sputum culture or cytology was sent at the time. She was placed on Augmentin and Oxycodone. She currently only complains of diffuse chest pain. Her cough has improved. A CTA chest was done in the ER today which found bilateral small subsegmental PE. She complains of anxiety regarding her diagnosis but is otherwise well. She has no risk factors for PE. No recent travel. No symptoms or risk factors for TB. EKG is NSR. 13 point ROS normal. Patient is adopted so her family history is unknown. AFVSS NAD NCAT MMM Supple RRR CTAB Soft, NTND No c/c/e Pulses intact A&Ox3 no focal deficits Current Medications Sig/Stephanie Start time Last Medication Dose Route Stop Time Status Admin Acetaminophen 650 MG Q6P PRN 03/29 1800 AC PO Alprazolam 0.25 MG DAILY PRN 03/29 1800 AC PO 04/05 1759 Amoxicillin/ 875 MG Q12 03/29 2100 AC 03/30 Clavulanate Potassium PO 1107 Heparin Sodium 0 .STK-MED ONE 03/29 1545 DC (Porcine) .ROUTE Heparin Sodium 0 .STK-MED ONE 03/29 1544 DC (Porcine) .ROUTE Heparin Sodium 4,000 UNIT ONCE ONE 03/29 1530 DC 03/29 (Porcine) IV 03/29 1531 1627 Heparin Sodium 25,000 UNIT Q24H 03/29 1530 AC 03/29 (Porcine) IV 03/30 1529 1628 Sodium Chloride 500 ML Heparin Sodium/ 25,000 UNIT Q24H 03/30 1530 AC Dextrose IV Dextrose/Water 500 ML Lorazepam 0 .STK-MED ONE 03/29 1544 DC .ROUTE Lorazepam 1 MG ONCE ONE 03/29 1530 DC 03/29 IV 03/29 1531 1544 Oxycodone/ 1 TAB Q6P PRN 03/29 1800 AC Acetaminophen PO Trimethobenzamide HCl 200 MG ONCE ONE 03/30 0830 DC 03/30 IM 03/30 0831 1012 Laboratory Tests 03/30 03/30 03/30 0707 0600 0005 Chemistry Sodium (137 - 145 mmol/L) 144 Potassium (3.5 - 5.1 mmol/L) 3.9 Chloride (98 - 107 mmol/L) 110 H Carbon Dioxide (22 - 30 mmol/L) 21 L Anion Gap (5 - 16) 13 BUN (7 - 17 mg/dL) 14 Creatinine (0.5 - 1.0 mg/dL) 0.8 Estimated GFR (>60 ml/min) > 60 BUN/Creatinine Ratio (7 - 25 %) 17.5 Troponin I (< 0.11 ng/ml) < 0.01 Cancelled Angiotensin Convert Enz Pending Coagulation APTT (25 - 37 SEC) 65 H Hematology CBC w Diff NO MAN DIFF REQ WBC (4.8 - 10.8 /CUMM) 5.3 RBC (4.20 - 5.40 /CUMM) 3.94 L Hgb (12.0 - 16.0 G/DL) 11.8 L Hct (37 - 47 %) 35.0 L MCV (81.0 - 99.0 FL) 88.7 MCH (27.0 - 31.0 PG) 29.9 MCHC (33.0 - 37.0 G/DL) 33.7 RDW (11.5 - 14.5 %) 13.2 Plt Count (130 - 400 /CUMM) 258 MPV (7.4 - 10.4 FL) 9.7 Gran % (42.2 - 75.2 %) 47.5 Lymphocytes % (20.5 - 51.1 %) 38.6 Monocytes % (1.7 - 9.3 %) 8.6 Eosinophils % (0 - 5 %) 4.4 Basophils % (0.0 - 2.0 %) 0.9 Absolute Granulocytes (1.4 - 6.5 /CUMM) 2.5 Absolute Lymphocytes (1.2 - 3.4 /CUMM) 2.0 Absolute Monocytes (0.10 - 0.60 /CUMM) 0.5 Absolute Eosinophils (0.0 - 0.7 /CUMM) 0.2 Absolute Basophils (0.0 - 0.2 /CUMM) 0 Immunology ANCA Pending Miscellaneous Ref Lab Test Result Pending 03/29 03/29 03/29 7714 5030 1246 Chemistry Sodium (137 - 145 mmol/L) 146 H Potassium (3.5 - 5.1 mmol/L) 4.1 Chloride (98 - 107 mmol/L) 109 H Carbon Dioxide (22 - 30 mmol/L) 23 Anion Gap (5 - 16) 14 BUN (7 - 17 mg/dL) 14 Creatinine (0.5 - 1.0 mg/dL) 0.8 Estimated GFR (>60 ml/min) > 60 BUN/Creatinine Ratio (7 - 25 %) 17.5 Glucose (65 - 99 mg/dL) 98 Calcium (8.4 - 10.2 mg/dL) 9.8 Total Bilirubin (0.2 - 1.3 mg/dL) 0.4 AST (14 - 36 U/L) 14 ALT (9 - 52 U/L) 16 Alkaline Phosphatase (<127 U/L) 77 Troponin I (< 0.11 ng/ml) < 0.01 < 0.01 Total Protein (6.3 - 8.2 g/dL) 8.1 Albumin (3.5 - 5.0 g/dL) 4.4 Globulin (1.9 - 4.2 gm/dL) 3.7 Albumin/Globulin Ratio (1.1 - 2.2 %) 1.2 25-OH Vitamin D Total (30 - 100 ng/ml) 17.4 L Coagulation PT (9.4 - 12.5 SEC) 13.9 H INR (0.90 - 1.19) 1.27 H APTT (25 - 37 SEC) > 120 *H 33 D-Dimer High Sensitivty (0 - 243 ng/ml) 294 H Hematology CBC w Diff NO MAN DIFF REQ WBC (4.8 - 10.8 /CUMM) 5.9 RBC (4.20 - 5.40 /CUMM) 4.11 L Hgb (12.0 - 16.0 G/DL) 12.1 Hct (37 - 47 %) 36.1 L MCV (81.0 - 99.0 FL) 87.7 MCH (27.0 - 31.0 PG) 29.5 MCHC (33.0 - 37.0 G/DL) 33.7 RDW (11.5 - 14.5 %) 13.1 Plt Count (130 - 400 /CUMM) 289 MPV (7.4 - 10.4 FL) 9.2 Gran % (42.2 - 75.2 %) 62.0 Lymphocytes % (20.5 - 51.1 %) 26.4 Monocytes % (1.7 - 9.3 %) 7.1 Eosinophils % (0 - 5 %) 4.1 Basophils % (0.0 - 2.0 %) 0.4 Absolute Granulocytes (1.4 - 6.5 /CUMM) 3.6 Absolute Lymphocytes (1.2 - 3.4 /CUMM) 1.5 Absolute Monocytes (0.10 - 0.60 /CUMM) 0.4 Absolute Eosinophils (0.0 - 0.7 /CUMM) 0.2 Absolute Basophils (0.0 - 0.2 /CUMM) 0 Immunology MARCIA Titer Pending Anti-Nuclear Antibody Pending Serology HIV 1&2 Ab Western Blot (NONREACTIVE) NONREACTIVE 03/29 1245 Chemistry Total Beta HCG Cancelled Vital Signs Date Time Temp Pulse Resp B/P B/P Pulse O2 O2 Flow FiO2 Mean Ox Delivery Rate 03/30 0700 98.4 69 20 109/61 99 03/29 2136 98.0 67 20 111/56 98 03/29 1845 99.2 74 18 118/70 100 03/29 1645 98.3 97 20 123/81 100 03/29 1258 62 18 115/73 99 Room Air Intake & Output 03/30 1600 03/30 0800 03/30 0000 Intake Total 440 250 Output Total Balance 440 250 Intake, IV 140 Intake, Oral 300 250 Patient 62.851 kg Weight Weight Bed scale Measurement Method 1. Bilateral subsegmental PE 2. Bilateral pulmonary cavitary lesions Plan - Continue on telemetry - Heparin drip, may switch to Eliquis today - Obtain echocardiogram - Send MARCIA, c-anca, ALAN level, vitamin D level, anti-dsDNA antibody level - Continue Augmentin - Pulmonary consult - Sputum culture and cytology - Send HIV - Pending pulmonary evaluation, may be discharged later today or tomorrow morning on Eliquis and Augmentin
[2018-03-30 15:12] VITALS: BP 104/60
--- NOTE | 2018-03-30 15:59 | Cons- Pulmonary ---
General Information and HPI Consulting Request Date of Consult: 03/30/18 Requested By: med team History of Present Illness: Ms. Sandoval is a 18-year-old lady with no significant past medical history presents with chest pain that has been going on for the past 2 weeks. She was seen at [facility] multiple times for similar complaint, blood workup and CAT scan chest was done and she was discharged home on pain medications and Augmentin to complete a 14 day course of antibiotics for pneumonia. Patient continued to have the chest pain on and off, 8/10 in intensity when severe. No aggravating or relieving factors. Reports dry cough which is getting better. Denies any shortness of breath or palpitations. Also denies any recent travel, immobility, not on any control medication, quit smoking 2 weeks ago(is to smoke 5-6 since yesterday since age of 13), and unsure about her family history as she is adopted. No recent . So complains of right hip/upper thigh pain that has been going on for almost a year now. Pain is on and off, ranges from 4-8/10 in intensity and sometimes get better with walking. Denies any calf pain or swelling. No OCP recently, and has family history of VTE Review of Systems Constitutional: Reports: no symptoms. EENTM: Reports: no symptoms. Cardiovascular: Reports: chest pain. Respiratory: Reports: cough. GI: Reports: no symptoms. Genitourinary: Reports: no symptoms. Musculoskeletal: Reports: joint pain, muscle pain. Skin: Reports: no symptoms. Neurological/Psychological: Reports: no symptoms. Hematologic/Endocrine: Reports: no symptoms. Immunologic/Allergic: Reports: no symptoms. All Other Systems: Reviewed and Negative Allergies/Medications Allergies: Coded Allergies: No Known Allergies (12/03/17) Home Med List: Alprazolam (Xanax) 0.25 MG TABLET 1 TAB PO DAILY PRN anxiety Amoxicillin/Potassium Clav (Augmentin 875-125 Tablet) 875 MG-125 MG TABLET 1 TAB PO BID PNEUMONIA Meloxicam (Mobic) 15 MG TABLET 1 TAB PO DAILY PRN pain Oxycodone HCl/Acetaminophen (Percocet 5-325 MG Tablet) 5 MG-325 MG TABLET 1-2 TAB PO Q6P PRN PAIN Review of Systems Review of Systems Constitutional: Reports: see HPI. 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 Home Who Do You Live With? spouse Primary Language: Cameroonian Smoking Status: Current Some Day Smoker (quit ten days ago) ETOH Use: denies use Illicit Drug Use: marijuana Functional Ability ADLs Independent: dressing, eating, toileting, bathing. Ambulation: independent IADLs Independent: shopping, housework, finances, food prep, telephone, transportation , medication admin. Exam & Diagnostic Data Last 24 Hrs of Vital Signs/I&O Vital Signs Date Time Temp Pulse Resp B/P B/P Pulse O2 O2 Flow FiO2 Mean Ox Delivery Rate 03/30 1512 98.3 86 18 104/60 97 Room Air 03/30 0700 98.4 69 20 109/61 99 03/29 2136 98.0 67 20 111/56 98 03/29 1845 99.2 74 18 118/70 100 03/29 1645 98.3 97 20 123/81 100 Intake & Output 03/30 1600 03/30 0800 03/30 0000 Intake Total 560 440 250 Output Total Balance 560 440 250 Intake, IV 160 140 Intake, Oral 400 300 250 Patient 139 lb Weight Weight Bed scale Measurement Method Last 48 Hrs of Labs/Dano: Laboratory Tests 03/30/18 0707: Angiotensin Convert Enz Pending, APTT 65 H, CBC w Diff NO MAN DIFF REQ, RBC 3.94 L, MCV 88.7, MCH 29.9, MCHC 33.7, RDW 13.2, MPV 9.7, Gran % 47.5, Lymphocytes % 38.6, Monocytes % 8.6, Eosinophils % 4.4, Basophils % 0.9, Absolute Granulocytes 2.5, Absolute Lymphocytes 2.0, Absolute Monocytes 0.5, Absolute Eosinophils 0.2, Absolute Basophils 0, ANCA Pending, Ref Lab Test Result Pending 03/30/18 0600: Anion Gap 13, Estimated GFR > 60, BUN/Creatinine Ratio 17.5, Troponin I < 0.01 03/30/18 0005: Troponin I Cancelled 03/29/18 2218: APTT > 120 *H 03/29/18 1816: Troponin I < 0.01 03/29/18 1246: Anion Gap 14, Estimated GFR > 60, BUN/Creatinine Ratio 17.5, Glucose 98, Calcium 9.8, Total Bilirubin 0.4, AST 14, ALT 16, Alkaline Phosphatase 77, Troponin I < 0.01, Total Protein 8.1, Albumin 4.4, Globulin 3.7, Albumin/Globulin Ratio 1.2, 25-OH Vitamin D Total 17.4 L, PT 13.9 H, INR 1.27 H, APTT 33, D-Dimer High Sensitivty 294 H, CBC w Diff NO MAN DIFF REQ, RBC 4.11 L, MCV 87.7, MCH 29.5, MCHC 33.7, RDW 13.1, MPV 9.2, Gran % 62.0, Lymphocytes % 26.4, Monocytes % 7.1, Eosinophils % 4.1, Basophils % 0.4, Absolute Granulocytes 3.6, Absolute Lymphocytes 1.5, Absolute Monocytes 0.4, Absolute Eosinophils 0.2, Absolute Basophils 0, MARCIA Titer Pending, Anti-Nuclear Antibody Pending, HIV 1&2 Ab Western Blot NONREACTIVE 03/29/18 1245: Total Beta HCG Cancelled 03/29/18 1130: Urine Test Cancelled 03/29/18 1114: TSH Cancelled Assessment/Plan Impression/Plan: CTA CHEST-PULMONARY EMBOLISM IMPRESSION: 1. There is no central or segmental pulmonary emboli identified. However, at left lower lobe, there are 2 subtle intraluminal filling defects visualized within the subsegmental branches of the left lower lobar pulmonary artery, consistent with subtle pulmonary embolism. 2. Previously documented cavitary lesion seen at left upper and left lower lobe of the lung shows interval decrease in size since most recent prior noncontrast CT of the chest done on 03/22/2018. 3. No other significant interval change. US-EXT BILAT VENOUS DOPPLER FINDINGS: Respiratory variation, normal compression and augmented flow are noted throughout the lower extremities. The visualized common femoral vein, superficial femoral vein, profunda femoral vein, popliteal vein and midcalf peroneal and posterior tibial venous segments show no evidence of deep venous thrombosis. There is no Ovalles's cyst. IMPRESSION: No evidence of deep venous thrombosis involving the bilateral lower extremities. General: WD/WN female in NAD; alert and oriented x 3 HEENT: NC/AT, PERRL, EOMI Neck: no JVD, no carotid bruit Heart: RRR w/o murmur Lungs: clear bilaterally Abdomens: soft, NT, +ve bowel sounds Extremities: no edema IMPRESSION This is a lady with recent bronchitis and bilateral cavitary pneumonia just responding to Augmentin with significant improvement from the recent past and probably an anaerobic infection which is better. Patient has no history of recent dental work but she does have poor dentition with, disease. No history of recent upper respiratory infection however she did have positive strep infection in January. No history of intravenous drug use but she does smoke marijuana. This seems to be better now with antibiotics. No significant increase in her white count. Her HIV is negative. She has 2 small subtle defects in her lung which appears to be very small pulmonary embolism in the subsegmental branches of the left lower lobe pulmonary artery with some chest discomfort. Probably pulmonary embolism and it should be treated as such Smoking with marijuana use Unlikely that she has vasculitis but this needs to be ruled out. Patient has no history suggestive of systemic symptoms like high fever and weight loss etc. RECOMMENDATION Continue anticoagulation Check vasculitis workup as ordered. Please order both C and PANCA. MARCIA, ESR, rheumatoid Check antiphospholipid antibody panel and lupus anticoagulants Continue current antibiotics for a total duration of 2 weeks of Augmentin Apixaban high-dose for 1 week followed by 5 mg twice a day Would thrombophilia workup Order prothrombin 87580 gene mutation, factor V Leyden gene mutation analysis We'll follow Consult Acknowledgment - Thank you for your consult request.
[2018-03-30 22:24] VITALS: BP 118/68
[2018-03-31 06:46] VITALS: BP 110/60
--- NOTE | 2018-03-31 08:38 | PN- Housestaff ---
Subjective Follow-up For: Pulmonary Embolism Vaginal bleeding Tele-Events Since Last Visit: SB/NSR with HR 51-62. No overnight events. Subjective: Patient seen and examined. She feels anxious. She wishes to go home and is upset about the echo not being done yet. She states she is having increased vaginal bleeding while on AC. Review of Systems Constitutional: Reports: no symptoms. Objective Last 24 Hrs of Vital Signs/I&O Vital Signs Date Time Temp Pulse Resp B/P B/P Pulse O2 O2 Flow FiO2 Mean Ox Delivery Rate 03/31 0646 98.2 63 18 110/60 98 Room Air 03/30 2224 98.9 58 18 118/68 99 Room Air 03/30 1512 98.3 86 18 104/60 97 Room Air Intake & Output 03/31 1600 03/31 0800 03/31 0000 Intake Total 200 600 Output Total Balance 200 600 Intake, Oral 200 600 Patient 136 lb Weight Physical Exam General Appearance: Alert, Oriented X3, Cooperative, Mild Distress Skin: No Rashes, No Breakdown Skin Temp/Moisture Exam: Warm/Dry Sepsis Skin Exam (color): Normal for Ethnicity HEENT: Atraumatic Cardiovascular: Normal S1, Normal S2, No Murmurs Lungs: Clear to Auscultation, Normal Air Movement Abdomen: Soft, No Tenderness Neurological: Normal Speech Extremities: No Edema Last 24 Hrs of Lab/Dano Results Last 24 Hrs of Labs/Mics: Laboratory Tests 03/31/18 0645: Anion Gap 14, Estimated GFR > 60, BUN/Creatinine Ratio 18.8, CBC w Diff NO MAN DIFF REQ, RBC 3.70 L, MCV 87.9, MCH 29.8, MCHC 33.9, RDW 12.9, MPV 10.0, Gran % 45.9, Lymphocytes % 38.1, Monocytes % 10.2 H, Eosinophils % 5.1 H, Basophils % 0.7, Absolute Granulocytes 2.3, Absolute Lymphocytes 1.9, Absolute Monocytes 0.5 , Absolute Eosinophils 0.3, Absolute Basophils 0 03/31/18 0600: Ref Lab Test Result Cancelled 03/30/18 1830: APTT Cancelled, ESR Westergren Cancelled Assessment/Plan Assessment: Ms. Sandoval is a 18-year-old lady with no significant past medical history who presented to the ED with complains of shortness of breath and chest pain. Of note she had been diagnosed with pneumonia on her prior visit to the ED and discharged home on a course of Augmentin. Further imaging in the ED this visit, revealed two small subsegmental branches of left lobar pulmonary artery, consistent with pulmonary embolism. Assessment: 1. Pulmonary Embolism 2. Pneumonia 3. Vaginal bleeding 4. History of Anxiety Plan: * Continue monitoring on telemetry for now. * Will continue her on IV Heparin for now with the patient's concerns of increased vaginal bleeding. * Per conversation with [employer], the patient can be monitored for now and even be safely discharged on a NOAC * Will monitor her for now. * Will order V/Q scan for tomorrow and reassess if she has regions of hypoperfusion. * Hypercoaguable work up: MARCIA, ANCA, anticardiolipin, prothrombin 21032 gene mutation, factor V Leyden gene mutation - pending. * Start Atarax 25mg TID for anxiety and ativan prn * Diet: Regular * DVT Prophylaxis: on IV heparin * Code: Full Code. Problem List: 1. Pulmonary embolism Pain Ratin Pain Location: none Pain Goal: Remain pain free Pain Plan: none Tomorrow's Labs & Rationales: CBC, BEP
[2018-03-31 08:44] LABS: ABSOLUTE BASOPHIL COUNT 0 /CUMM (0.0-0.2); ABSOLUTE EOSINOPHIL COUNT 0.3 /CUMM (0.0-0.7); ABSOLUTE GRANULOCYTE CT 2.3 /CUMM (1.4-6.5); ABSOLUTE LYMPH COUNT 1.9 /CUMM (1.2-3.4); ABSOLUTE MONOCYTE COUNT 0.5 /CUMM (0.10-0.60); BASOPHIL % 0.7 % (0.0-2.0); EOSINOPHIL % 5.1 % (0-5); GRANULOCYTE % 45.9 % (42.2-75.2); HEMATOCRIT 32.5 % (37-47); MEAN CORPUSCULAR HGB 29.8 PG (27.0-31.0); MEAN CORPUSCULAR HGB CONC 33.9 G/DL (33.0-37.0); MEAN CORPUSCULAR VOLUME 87.9 FL (81.0-99.0); PLATELET COUNT 223 /CUMM (130-400); RBC DISTRIBUTION WIDTH 12.9 % (11.5-14.5); WHITE BLOOD CELL COUNT 5.1 /CUMM (4.8-10.8)
--- NOTE | 2018-03-31 11:20 | PN- Cardiology ---
Subjective Subjective: * No shortness of breath. Patient reports a very heavy period on Eliquis. * sinus rhythm Objective Vital Signs and I&Os Vital Signs Date Time Temp Pulse Resp B/P B/P Pulse O2 O2 Flow FiO2 Mean Ox Delivery Rate 03/31 0646 98.2 63 18 110/60 98 Room Air 03/30 2224 98.9 58 18 118/68 99 Room Air 03/30 1512 98.3 86 18 104/60 97 Room Air Intake & Output 03/31 0803/31 0000 03/30 1600 03/30 0800 03/30 0000 Intake Total 200 600 560 440 250 Output Total Balance 200 600 560 440 250 Intake, IV 160 140 Intake, Oral 200 600 400 300 250 Patient 136 lb 139 lb Weight Weight Bed scale Measurement Method Physical Exam: General: WD/WN female in NAD; alert and oriented x 3 HEENT: NC/AT, PERRL, EOMI Neck: no JVD, no carotid bruit Heart: RRR w/o murmur Lungs: clear bilaterally Abdomens: soft, NT, +ve bowel sounds Extremities: no edema Assessment/Plan Assessment/Plan * This patient has rather subtle findings of a subsemental pulmonary embolism. It is not on the side that she describes her chest discomfort and she denies shortness of breath. Nevertheless, she is a smoker and may well have a true PE. She should be anticoagulated on Eliquis for at least three months. 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 If no significant source of bleeding is found the resume Eliquis 10mg BID for 1 week followed by 5mg BID to complete 3 months. I would take the opportunity to use her initial blood upon presentation to the ER, prior to anticoagulation, to perform a hypercoagulable workup if possible. Would obtain a lupus anticoagulant, antithrombin 3, protein C and protein S. * Obtain an echocardiogram. * Agree with vasculitis workup as recommended by Dr. Castro. Continue telemetry? Yes
--- NOTE | 2018-03-31 12:09 | PN- Pulmonary ---
Subjective HPI/Critical Care Issues: Events and data reviewed Has sig menstrual bleeding Stable otherwise Objective Current Medications: Current Medications Sig/Stephanie Start time Last Medication Dose Route Stop Time Status Admin Acetaminophen 650 MG Q6P PRN 03/29 1800 AC PO Alprazolam 0.25 MG DAILY PRN 03/29 1800 AC 03/31 PO 04/05 1759 0713 Amoxicillin/ 875 MG Q12 03/29 2100 AC 03/31 Clavulanate Potassium PO 1049 Apixaban 10 MG BID 03/30 1253 DC 03/30 PO 2225 Heparin Sodium 25,000 UNIT Q24H 03/29 1530 DC 03/29 (Porcine) IV 03/30 1529 1628 Sodium Chloride 500 ML Heparin Sodium/ 25,000 UNIT Q24H 03/31 0915 AC 03/31 Dextrose IV 1049 Dextrose/Water 500 ML Heparin Sodium/ 25,000 UNIT Q24H 03/30 1530 CAN Dextrose IV Dextrose/Water 500 ML Hydroxyzine HCl 25 MG TID 03/31 1200 AC 03/31 PO 1153 Lorazepam 0.5 MG ONCE ONE 03/31 1145 DC IV 03/31 1146 Ondansetron HCl 4 MG ONCE ONE 03/31 1145 DC 03/31 IV 03/31 1146 1153 Oxycodone/ 1 TAB Q6P PRN 03/29 1800 AC 03/30 Acetaminophen PO 2036 Vital Signs & I&O Last 24 Hrs of Vitals and I&O: Vital Signs Date Time Temp Pulse Resp B/P B/P Pulse O2 O2 Flow FiO2 Mean Ox Delivery Rate 03/31 0646 98.2 63 18 110/60 98 Room Air 03/30 2224 98.9 58 18 118/68 99 Room Air 03/30 1512 98.3 86 18 104/60 97 Room Air Intake & Output 03/31 1600 03/31 0800 03/31 0000 Intake Total 200 600 Output Total Balance 200 600 Intake, Oral 200 600 Patient 136 lb Weight Impression/Plan Impression/Plan Impression/Plan: CTA CHEST-PULMONARY EMBOLISM IMPRESSION: 1. There is no central or segmental pulmonary emboli identified. However, at left lower lobe, there are 2 subtle intraluminal filling defects visualized within the subsegmental branches of the left lower lobar pulmonary artery, consistent with subtle pulmonary embolism. 2. Previously documented cavitary lesion seen at left upper and left lower lobe of the lung shows interval decrease in size since most recent prior noncontrast CT of the chest done on 03/22/2018. 3. No other significant interval change. US-EXT BILAT VENOUS DOPPLER FINDINGS: Respiratory variation, normal compression and augmented flow are noted throughout the lower extremities. The visualized common femoral vein, superficial femoral vein, profunda femoral vein, popliteal vein and midcalf peroneal and posterior tibial venous segments show no evidence of deep venous thrombosis. There is no Ovalles's cyst. IMPRESSION: No evidence of deep venous thrombosis involving the bilateral lower extremities. General: WD/WN female in NAD; alert and oriented x 3 HEENT: NC/AT, PERRL, EOMI Neck: no JVD, no carotid bruit Heart: RRR w/o murmur Lungs: clear bilaterally Abdomens: soft, NT, +ve bowel sounds Extremities: no edema IMPRESSION This is a lady with recent bronchitis and bilateral cavitary pneumonia just responding to Augmentin with significant improvement from the recent past and probably an anaerobic infection which is better. Patient has no history of recent dental work but she does have poor dentition with, disease. No history of recent upper respiratory infection however she did have positive strep infection in January. No history of intravenous drug use but she does smoke marijuana. This seems to be better now with antibiotics. No significant increase in her white count. Her HIV is negative. * She has 2 small subtle defects in her lung which appears to be very small pulmonary embolism in the subsegmental branches of the left lower lobe pulmonary artery with some chest discomfort. Probably pulmonary embolism and it should be treated as such for now. However has been having issues with her menstrual bleed * Smoking with marijuana use * Unlikely that she has vasculitis but this needs to be ruled out. Patient has no history suggestive of systemic symptoms like high fever and weight loss etc. RECOMMENDATION Continue anticoagulation, if in the hospital will consider VQ scan to see if she has abnormal perfusion in the left side,and if completely normal can consider no anticoag for now Check vasculitis workup as ordered. Please order both C and PANCA. MARCIA, ESR, rheumatoid Continue current antibiotics for a total duration of 2 weeks of Augmentin Would thrombophilia workup Order prothrombin 73609 gene mutation, factor V Leyden gene mutation analysis We'll follow
[2018-03-31 14:14] VITALS: BP 100/68
[2018-03-31 18:10] LABS: PTT 66 SEC (25-37)
--- NOTE | 2018-03-31 18:40 | PN- Att Addend ---
Attending Addendum Attending Brief Note 18F PMH anxiety, recently diagnosed cavitary pneumonia on Augmentin, presents with continued chest pain after running out of Oxycodone. She has had diffuse chest pain on and off for a month and has had a workup in the ER on [address] chest done on 03/22 found bilateral cavitary lesions of undetermined etiology. No sputum culture or cytology was sent at the time. She was placed on Augmentin and Oxycodone. She currently only complains of diffuse chest pain. Her cough has improved. A CTA chest was done in the ER today which found bilateral small subsegmental PE. She complains of anxiety regarding her diagnosis but is otherwise well. She has no risk factors for PE. No recent travel. No symptoms or risk factors for TB. EKG is NSR. 13 point ROS normal. Today complained of heavy vaginal bleeding. AFVSS NAD NCAT MMM Supple RRR CTAB Soft, NTND No c/c/e Pulses intact A&Ox3 no focal deficits Current Medications Sig/Stephanie Start time Last Medication Dose Route Stop Time Status Admin Acetaminophen 650 MG Q6P PRN 03/29 1800 AC PO Alprazolam 0.25 MG DAILY PRN 03/29 1800 AC 03/31 PO 04/05 1759 0713 Amoxicillin/ 875 MG Q12 03/29 2100 AC 03/31 Clavulanate Potassium PO 1049 Apixaban 10 MG BID 03/30 1253 DC 03/30 PO 2225 Heparin Sodium/ 25,000 UNIT Q24H 03/31 0915 AC 03/31 Dextrose IV 1049 Dextrose/Water 500 ML Hydroxyzine HCl 25 MG TID 03/31 1200 AC 03/31 PO 1153 Lorazepam 0.5 MG ONCE ONE 03/31 1145 DC IV 03/31 1146 Ondansetron HCl 4 MG ONCE ONE 03/31 1145 DC 03/31 IV 03/31 1146 1153 Oxycodone/ 1 TAB Q6P PRN 03/29 1800 AC 03/30 Acetaminophen PO 203 Laboratory Tests 03/31 03/31 03/31 1650 1650 0645 Chemistry Sodium (137 - 145 mmol/L) 143 Potassium (3.5 - 5.1 mmol/L) 3.8 Chloride (98 - 107 mmol/L) 108 H Carbon Dioxide (22 - 30 mmol/L) 21 L Anion Gap (5 - 16) 14 BUN (7 - 17 mg/dL) 15 Creatinine (0.5 - 1.0 mg/dL) 0.8 Estimated GFR (>60 ml/min) > 60 BUN/Creatinine Ratio (7 - 25 %) 18.8 Coagulation APTT (25 - 37 SEC) 66 H Lupus Anticoagulant Pending LA PTT Screen Pending Dil Petr Viper Venom Pending Protein C Activity Pending Protein S Pending Antithrombin III Activ Pending Hematology CBC w Diff NO MAN DIFF REQ WBC (4.8 - 10.8 /CUMM) 5.1 RBC (4.20 - 5.40 /CUMM) 3.70 L Hgb (12.0 - 16.0 G/DL) 11.0 L Hct (37 - 47 %) 32.5 L MCV (81.0 - 99.0 FL) 87.9 MCH (27.0 - 31.0 PG) 29.8 MCHC (33.0 - 37.0 G/DL) 33.9 RDW (11.5 - 14.5 %) 12.9 Plt Count (130 - 400 /CUMM) 223 MPV (7.4 - 10.4 FL) 10.0 Gran % (42.2 - 75.2 %) 45.9 Lymphocytes % (20.5 - 51.1 %) 38.1 Monocytes % (1.7 - 9.3 %) 10.2 H Eosinophils % (0 - 5 %) 5.1 H Basophils % (0.0 - 2.0 %) 0.7 Absolute Granulocytes (1.4 - 6.5 /CUMM) 2.3 Absolute Lymphocytes (1.2 - 3.4 /CUMM) 1.9 Absolute Monocytes (0.10 - 0.60 /CUMM) 0.5 Absolute Eosinophils (0.0 - 0.7 /CUMM) 0.3 Absolute Basophils (0.0 - 0.2 /CUMM) 0 Immunology Anti-Cardiolipin IgG Ab Pending Anti-Cardiolipin IgA Ab Pending Anti-Cardiolipin IgM Ab Pending Cardiolipin Ab Comment Pending Miscellaneous Ref Lab Test Result Pending Pending 03/31 0600 Miscellaneous Ref Lab Test Result Cancelled Vital Signs Date Time Temp Pulse Resp B/P B/P Pulse O2 O2 Flow FiO2 Mean Ox Delivery Rate 03/31 1414 98.6 82 18 100/68 98 Room Air 03/31 0646 98.2 63 18 110/60 98 Room Air 03/30 2224 98.9 58 18 118/68 99 Room Air Intake & Output 03/31 1600 03/31 0800 03/31 0000 Intake Total 400 200 600 Output Total Balance 400 200 600 Intake, IV 100 Intake, Oral 300 200 600 Patient 61.802 kg Weight 1. Bilateral subsegmental PE 2. Bilateral pulmonary cavitary lesions Plan - Continue on telemetry - Heparin drip, may switch to Eliquis tomorrow - Obtain echocardiogram - Monitor CBC - Send MARCIA, c-anca, ALAN level, vitamin D level, anti-dsDNA antibody level - Continue Augmentin - Pulmonary consult - Sputum culture and cytology - HIV negative - ALPS for DVT PPx - Anticipated discharge tomorrow
[2018-03-31 20:30] LABS: ABSOLUTE BASOPHIL COUNT 0 /CUMM (0.0-0.2); ABSOLUTE EOSINOPHIL COUNT 0.2 /CUMM (0.0-0.7); ABSOLUTE GRANULOCYTE CT 2.8 /CUMM (1.4-6.5); ABSOLUTE LYMPH COUNT 2.8 /CUMM (1.2-3.4); ABSOLUTE MONOCYTE COUNT 0.6 /CUMM (0.10-0.60); BASOPHIL % 0.6 % (0.0-2.0); EOSINOPHIL % 3.1 % (0-5); GRANULOCYTE % 43.4 % (42.2-75.2); MEAN CORPUSCULAR HGB 29.3 PG (27.0-31.0); MEAN CORPUSCULAR HGB CONC 33.4 G/DL (33.0-37.0); MEAN CORPUSCULAR VOLUME 87.6 FL (81.0-99.0); MEAN PLATELET VOLUME 9.5 FL (7.4-10.4); PLATELET COUNT 255 /CUMM (130-400); RBC DISTRIBUTION WIDTH 12.9 % (11.5-14.5); RED BLOOD CELL CT 3.99 /CUMM (4.20-5.40); WHITE BLOOD CELL COUNT 6.4 /CUMM (4.8-10.8)
[2018-03-31 22:47] VITALS: BP 100/68
[2018-04-01 05:48] LABS: ABSOLUTE BASOPHIL COUNT 0 /CUMM (0.0-0.2); ABSOLUTE EOSINOPHIL COUNT 0.2 /CUMM (0.0-0.7); ABSOLUTE GRANULOCYTE CT 1.8 /CUMM (1.4-6.5); ABSOLUTE LYMPH COUNT 2.9 /CUMM (1.2-3.4); ABSOLUTE MONOCYTE COUNT 0.5 /CUMM (0.10-0.60); BASOPHIL % 0.7 % (0.0-2.0); EOSINOPHIL % 4.5 % (0-5); GRANULOCYTE % 33.7 % (42.2-75.2); HEMATOCRIT 33.7 % (37-47); MEAN CORPUSCULAR HGB 29.6 PG (27.0-31.0); MEAN CORPUSCULAR HGB CONC 33.6 G/DL (33.0-37.0); MEAN CORPUSCULAR VOLUME 88.3 FL (81.0-99.0); MEAN PLATELET VOLUME 9.6 FL (7.4-10.4); PLATELET COUNT 228 /CUMM (130-400); RBC DISTRIBUTION WIDTH 12.8 % (11.5-14.5); RED BLOOD CELL CT 3.82 /CUMM (4.20-5.40); WHITE BLOOD CELL COUNT 5.5 /CUMM (4.8-10.8)
[2018-04-01 06:08] LABS: PTT 110 SEC (25-37)
[2018-04-01 06:47] VITALS: BP 106/70
--- NOTE | 2018-04-01 07:14 | PN- Housestaff ---
Esteban ARDON,[facility] 04/01/18 0714: Subjective Follow-up For: Pulmonary Embolism Pneumonia Anxiety Tele-Events Since Last Visit: Normal sinus rhythm Heart rate 37-120s Subjective: Patient resting comfortably. Denies any shortness of breath, palpitations, fever/chills, cough or sputum production. Vaginal bleeding has improved. Review of Systems Constitutional: Reports: no symptoms. EENTM: Reports: no symptoms. Cardiovascular: Reports: no symptoms. Respiratory: Reports: no symptoms. Gastrointestinal: Reports: no symptoms. Genitourinary: Reports: no symptoms. Musculoskeletal: Reports: no symptoms. Skin: Reports: no symptoms. Neurological/Psychological: Reports: no symptoms. Hematologic/Endocrine: Reports: no symptoms. Immunologic/Allergic: Reports: no symptoms. Objective Last 24 Hrs of Vital Signs/I&O Vital Signs Date Time Temp Pulse Resp B/P B/P Pulse O2 O2 Flow FiO2 Mean Ox Delivery Rate 04/01 0800 Room Air 04/01 0647 97.7 64 16 106/70 100 Room Air 03/31 2247 99.7 74 16 100/68 100 Room Air 03/31 1414 98.6 82 18 100/68 98 Room Air Intake & Output 04/01 1600 04/01 0800 04/01 0000 Intake Total 777.6 977.6 Output Total Balance 777.6 977.6 Intake, IV 177.6 177.6 Intake, Oral 600 800 Patient 135 lb Weight Weight Bed scale Measurement Method Physical Exam General Appearance: Alert, Oriented X3, Cooperative, No Acute Distress Skin: No Rashes, No Breakdown Cardiovascular: Regular Rate, Normal S1, Normal S2, No Murmurs Lungs: Clear to Auscultation, Normal Air Movement Abdomen: Normal Bowel Sounds, Soft, No Tenderness Extremities: No Clubbing, No Cyanosis, No Edema Current Medications: Current Medications Sig/Stephanie Start time Last Medication Dose Route Stop Time Status Admin Acetaminophen 650 MG Q6P PRN 03/29 1800 AC PO Alprazolam 0.25 MG DAILY PRN 03/29 1800 AC 03/31 PO 04/05 1759 0713 Amoxicillin/ 875 MG Q12 03/29 2100 AC 04/01 Clavulanate Potassium PO 0939 Heparin Sodium/ 25,000 UNIT Q24H 03/31 0915 AC 04/01 Dextrose IV 0939 Dextrose/Water 500 ML Hydroxyzine HCl 25 MG TID 03/31 1200 AC 04/01 PO 0939 Lorazepam 0.5 MG ONCE ONE 03/31 1145 DC IV 03/31 1146 Ondansetron HCl 4 MG ONCE ONE 03/31 1145 DC 03/31 IV 03/31 1146 1153 Oxycodone/ 1 TAB Q6P PRN 03/29 1800 AC 03/31 Acetaminophen PO 2146 Potassium Chloride 40 MEQ ONCE ONE 04/01 0800 DC 04/01 PO 04/01 0801 0939 Last 24 Hrs of Lab/Dano Results Last 24 Hrs of Labs/Mics: Laboratory Tests 04/01/18 0515: Anion Gap 13, Estimated GFR > 60, BUN/Creatinine Ratio 15.0, APTT 110 *H, CBC w Diff NO MAN DIFF REQ, RBC 3.82 L, MCV 88.3, MCH 29.6, MCHC 33.6, RDW 12.8, MPV 9.6, Gran % 33.7 L, Lymphocytes % 52.7 H, Monocytes % 8.4, Eosinophils % 4.5, Basophils % 0.7, Absolute Granulocytes 1.8, Absolute Lymphocytes 2.9, Absolute Monocytes 0.5, Absolute Eosinophils 0.2, Absolute Basophils 0 03/31/181999: CBC w Diff NO MAN DIFF REQ, RBC 3.99 L, MCV 87.6, MCH 29.3, MCHC 33.4, RDW 12.9 , MPV 9.5, Gran % 43.4, Lymphocytes % 43.1, Monocytes % 9.8 H, Eosinophils % 3.1, Basophils % 0.6, Absolute Granulocytes 2.8, Absolute Lymphocytes 2.8, Absolute Monocytes 0.6, Absolute Eosinophils 0.2, Absolute Basophils 0 03/31/180: Lupus Anticoagulant Pending, LA PTT Screen Pending, Dil Petr Viper Venom Pending, Protein C Activity Pending, Protein S Pending, Antithrombin III Activ Pending, Ref Lab Test Result Pending 03/31/180: APTT 66 H, Anti-Cardiolipin IgG Ab Pending, Anti-Cardiolipin IgA Ab Pending, Anti-Cardiolipin IgM Ab Pending, Cardiolipin Ab Comment Pending, Ref Lab Test Result Pending Assessment/Plan Assessment: Ms. Sandoval is a 18-year-old lady with no significant past medical history who presented to the ED with complains of shortness of breath and chest pain. Of note she had been diagnosed with pneumonia on her prior visit to the ED and discharged home on a course of Augmentin. Further imaging in the ED this visit, revealed two small subsegmental branches of left lobar pulmonary artery, consistent with pulmonary embolism. Assessment: 1. Pulmonary Embolism 2. Pneumonia 3. Vaginal bleeding 4. History of Anxiety Plan: * Continue monitoring on telemetry for now. * Will continue her on IV Heparin for now with the patient's concerns of increased vaginal bleeding. * Given Hx of menorrhagia will obtain CT abd and pelvis with contrast. 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 * V/Q scan today and reassess if she has regions of hypoperfusion, if normal will D/C anticoagulation. * Hypercoaguable work up: MARCIA, ANCA, anticardiolipin, prothrombin 07784 gene mutation, factor V Leyden gene mutation, Protein C and Protein S - pending. * HIV negative * Start Atarax 25mg TID for anxiety and ativan prn * Psych Eval Pending. * Diet: Regular * DVT Prophylaxis: on IV heparin * Code: Full Code. Problem List: 1. Pulmonary embolism 2. Pneumonia 3. Vaginal bleeding Pain Ratin Pain Location: NA Pain Goal: Remain pain free Pain Plan: Pain Pathway Tomorrow's Labs & Rationales: None Shimon Bob MD 04/01/18 1144: Attending MD Review Statement Attending Statement Attending MD Statement: examined this patient, discuss w/resident/PA/SECURITY ORDERLY, agreed w/resident/PA/SECURITY ORDERLY, reviewed EMR data (avail) Attending Assessment/Plan: 18F PMH anxiety, recently diagnosed cavitary pneumonia on Augmentin, presents with continued chest pain after running out of Oxycodone. She has had diffuse chest pain on and off for a month and has had a workup in the ER on [address] chest done on 03/22 found bilateral cavitary lesions of undetermined etiology. No sputum culture or cytology was sent at the time. She was placed on Augmentin and Oxycodone. A CTA chest was done in the ER today which found bilateral small subsegmental PE. She complains of anxiety regarding her diagnosis but is otherwise well. She has no risk factors for PE. No recent travel. No symptoms or risk factors for TB. EKG is NSR. Feels well today, no complaints. Vaginal bleeding improved. 1. Bilateral subsegmental PE 2. Bilateral pulmonary cavitary lesions Plan - Continue on telemetry - Heparin drip, may switch to Eliquis tomorrow - Obtain echocardiogram - V/Q scan today - CT abdomen/pelvis - Monitor CBC - Follow MARCIA, c-anca, p-anca, ALAN level, vitamin D level, anti-dsDNA antibody level - Continue Augmentin - Pulmonary consult - Sputum culture and cytology - HIV negative - ALPS for DVT PPx
--- NOTE | 2018-04-01 09:18 | ECHOCARDIOGRAM REPORT ---
MONICA MEDINA Age: 18 : 2000 Gender: F Exam Date: 03/31/2018 20:37 Exam Location: [place] Ht (in): 66 Wt (lb): 138 BSA: 1.71 BP: 110 / 60 Ordering Physician: Charley Orellana MD Referring Physician: Armani Glover MD Technologist: Azeem Tabares [facility] Room Number: [id number] Indications: ACUTE PULMONARY EMBOLISM Rhythm: Technical Quality: good FINDINGS Left Ventricle Normal left ventricular size, wall thickness and systolic function with no obvious regional wall motion abnormalities. Normal left ventricular diastolic filling pattern for age. The ejection fraction is visually estimated at 60%. Right Ventricle The right ventricle is normal in size and function. Right Atrium The right atrium is normal in size. Left Atrium The left atrium is normal in size. The interatrial septum is intact. Mitral Valve The mitral valve is normal in structure and function. There is trace mitral regurgitation. Aortic Valve Structurally normal aortic valve without significant sclerosis or stenosis. There is trace aortic regurgitation. Tricuspid Valve The tricuspid valve is normal in structure and function. There is trace tricuspid regurgitation. Pulmonary artery systolic pressure is normal. Pulmonic Valve Structurally normal pulmonic valve. There is trace pulmonic regurgitation. Pericardium Normal pericardium without effusion. No pleural effusion. Great Vessels Normal aortic root dimension. The aortic arch and great vessels are well seen and are normal. CONCLUSIONS 1. Normal EF of 60%. 2. Trace mitral regurgitation. 3. Trace tricuspid regurgitation. 4. Trace aortic regurgitation. 5. Trace pulmonic regurgitation. Jose R Claire M.D. (Electronically Signed) Final Date: 01 Apr 2018 09:17 MEASUREMENTS (Male / Female) Normal Values 2D ECHO LV Diastolic Diameter PLAX 4.7 cm 4.2 - 5.9 / 3.9 - 5.3 cm LV Systolic Diameter PLAX 3.2 cm 2.1 - 4.0 cm LV Fractional Shortening PLAX 31.9 % 25 - 46 % LV Ejection Fraction 2D Teich 60.0 % IVS Diastolic Thickness 0.9 cm LVPW Diastolic Thickness 0.8 cm LV Relative Wall Thickness 0.4 RV Internal Dim ED PLAX 2.4 cm 1.9 - 3.8 cm Aortic Root Diameter 2.9 cm LA Systolic Diameter LX 2.5 cm 3.0 - 4.0 / 2.7 - 3.8 cm LA Volume 27.0 cm 18 - 58 / 22 - 52 cm Ascending Aorta Diameter 2.5 cm DOPPLER AV Peak Velocity 131.0 cm/s AV Peak Gradient 6.9 mmHg AV Mean Velocity 96.6 cm/s AV Mean Gradient 4.0 mmHg AV Velocity Time Integral 23.9 cm LVOT Peak Velocity 97.1 cm/s LVOT Peak Gradient 3.8 mmHg LVOT Mean Velocity 67.5 cm/s LVOT Mean Gradient 2.0 mmHg LVOT Velocity Time Integral 16.6 cm MV Peak Velocity 77.2 cm/s MV Peak Gradient 2.4 mmHg MV Mean Velocity 56.4 cm/s MV Mean Gradient 1.0 mmHg Mitral E Point Velocity 68.6 cm/s Mitral A Point Velocity 40.5 cm/s Mitral E to A Ratio 1.7 MV PHT Velocity 81.4 cm/s MV Deceleration Lucas 318.0 cm/s MV Pressure Half Time 76.8 ms MV Area PHT 2.9 cm MV Deceleration Time 225.0 ms TV Peak Velocity 201.5 cm/s TV Peak E Velocity 67.2 cm/s TV Peak A Velocity 45.9 cm/s TV E to A Ratio 1.5 Right Atrial Pressure 5.0 mmHg PV Peak Velocity 89.6 cm/s PV Peak Gradient 3.2 mmHg PV Mean Velocity 72.4 cm/s PV Mean Gradient 2.0 mmHg PV Velocity Time Integral 17.8 cm LV E' Lateral Velocity 13.8 cm/s Mitral E to LV E' Lateral Ratio 5.0 LV E' Septal Velocity 9.9 cm/s Mitral E to LV E' Septal Ratio 6.9
--- NOTE | 2018-04-01 09:47 | PN- Pulmonary ---
Subjective HPI/Critical Care Issues: Pt says she has very chornic menometrorraghia and bleeding not too sig today hemoglobin stable Objective Current Medications: Current Medications Sig/Stephanie Start time Last Medication Dose Route Stop Time Status Admin Acetaminophen 650 MG Q6P PRN 03/29 1800 AC PO Alprazolam 0.25 MG DAILY PRN 03/29 1800 AC 03/31 PO 04/05 1759 0713 Amoxicillin/ 875 MG Q12 03/29 2100 AC 03/31 Clavulanate Potassium PO 214 Heparin Sodium/ 25,000 UNIT Q24H 03/31 0915 AC 03/31 Dextrose IV 1049 Dextrose/Water 500 ML Hydroxyzine HCl 25 MG TID 03/31 1200 AC 03/31 PO 2142 Lorazepam 0.5 MG ONCE ONE 03/31 1145 DC IV 03/31 1146 Ondansetron HCl 4 MG ONCE ONE 03/31 1145 DC 03/31 IV 03/31 1146 1153 Oxycodone/ 1 TAB Q6P PRN 03/29 1800 AC 03/31 Acetaminophen PO 2146 Potassium Chloride 40 MEQ ONCE ONE 04/01 0800 DC PO 04/01 0801 Vital Signs & I&O Last 24 Hrs of Vitals and I&O: Vital Signs Date Time Temp Pulse Resp B/P B/P Pulse O2 O2 Flow FiO2 Mean Ox Delivery Rate 04/01 0800 Room Air 04/01 0647 97.7 64 16 106/70 100 Room Air 03/31 2247 99.7 74 16 100/68 100 Room Air 03/31 1414 98.6 82 18 100/68 98 Room Air Intake & Output 04/01 1600 04/01 0800 04/01 0000 Intake Total 777.6 977.6 Output Total Balance 777.6 977.6 Intake, IV 177.6 177.6 Intake, Oral 600 800 Patient 135 lb Weight Weight Bed scale Measurement Method Impression/Plan Impression/Plan Impression/Plan: CTA CHEST-PULMONARY EMBOLISM IMPRESSION: 1. There is no central or segmental pulmonary emboli identified. However, at left lower lobe, there are 2 subtle intraluminal filling defects visualized within the subsegmental branches of the left lower lobar pulmonary artery, consistent with subtle pulmonary embolism. 2. Previously documented cavitary lesion seen at left upper and left lower lobe of the lung shows interval decrease in size since most recent prior noncontrast CT of the chest done on 03/22/2018. 3. No other significant interval change. US-EXT BILAT VENOUS DOPPLER FINDINGS: Respiratory variation, normal compression and augmented flow are noted throughout the lower extremities. The visualized common femoral vein, superficial femoral vein, profunda femoral vein, popliteal vein and midcalf peroneal and posterior tibial venous segments show no evidence of deep venous thrombosis. There is no Ovalles's cyst. IMPRESSION: No evidence of deep venous thrombosis involving the bilateral lower extremities. General: WD/WN female in NAD; alert and oriented x 3 HEENT: NC/AT, PERRL, EOMI Neck: no JVD, no carotid bruit Heart: RRR w/o murmur Lungs: clear bilaterally Abdomens: soft, NT, +ve bowel sounds Extremities: no edema IMPRESSION This is a lady with recent bronchitis and bilateral cavitary pneumonia just responding to Augmentin with significant improvement from the recent past and probably an anaerobic infection which is better. Patient has no history of recent dental work but she does have poor dentition with, disease. No history of recent upper respiratory infection however she did have positive strep infection in January. No history of intravenous drug use but she does smoke marijuana. This seems to be better now with antibiotics. No significant increase in her white count. Her HIV is negative. * She has 2 small subtle defects in her lung which appears to be very small pulmonary embolism in the subsegmental branches of the left lower lobe pulmonary artery with some chest discomfort. Probably has pulmonary embolism and it should be treated as such for now. However has been having issues with her menstrual bleed, with menometrorraghia * Improving cavitary pna on abx prob strep * Smoking with marijuana use * Unlikely that she has vasculitis but this needs to be ruled out. Patient has no history suggestive of systemic symptoms like high fever and weight loss etc. RECOMMENDATION Continue anticoagulation, Consider VQ scan today to see if she has abnormal perfusion in the left side,and if completely normal can consider no anticoag for now if menorragia is an issue Vasculitis and heriditary thrombophilia work up pending Continue current antibiotics for a total duration of 2 weeks of Augmentin Lovonox 1.5 mg daily for 3 more days and then 5 mg eloquis bid ( if we need to avoid very high dose eloquis)
--- NOTE | 2018-04-01 09:55 | Patient Discharge Instructions ---
Discharge Instructions General Discharge Information You were seen/treated for: Chest Pain Pneumonia Watch for these problems: Please return to the ER in case of any chest pain radiating to your jaw, left arm or back, shortness of breath, palpitations or lightheadedness/dizziness. Special Instructions: Please follow-up with your PCP within a week after discharge. Please follow-up with your diagrammer and dean of student services within a week after discharge. Diet Continue normal diet: Yes Activity Full Activity/No Limits: Yes Activity Self Limited: Yes Acute Coronary Syndrome Inclusion Criteria At DC or during hospital stay patient has or had the following: ACS DIAGNOSIS No Discharge Core Measures Meds if any: Prescribed or Continued at Discharge Meds if any: NOT Prescribed or Continued at Discharge Congestive Heart Failure Inclusion Criteria At DC or during hospital stay patient has or had the following: CHF DIAGNOSIS No Discharge Core Measures Meds if any: Prescribed or Continued at Discharge Meds if any: NOT Prescribed or Continued at Discharge Cerebrovascular accident Inclusion Criteria At DC or during hospital stay patient has or had the following: CVA/TIA Diagnosis No Discharge Core Measures Meds if any: Prescribed or Continued at Discharge Meds if any: NOT Prescribed or Continued at Discharge Venous thromboembolism Inclusion Criteria VTE Diagnosis Yes VTE Type Pulmonary Embolism VTE Confirmed by (Test) LUNG SCAN (V/Q) Discharge Core Measures - Per Current guidelines, there needs to be overlap - treatment for the first 5 days of Warfarin therapy. - If discharged on Warfarin prior to 5 days of - overlap therapy, the patient will need to be - assessed for post discharge needs including - *Post discharge parental anticoagulation - *Warfarin and/or parental anticoagulation education - *Follow up date to check INR post discharge At least 5 days overlap therapy as Inpatient No Meds if any: Prescribed or Continued at Discharge Note: Overlap Therapy is Warfarin and Anticoagulant Meds if any: NOT Prescribed or Continued at Discharge
--- NOTE | 2018-04-01 10:46 | Discharge Summary ---
Hospital Course Allergies: Coded Allergies: No Known Allergies (12/03/17) Discharge Instructions Medications at Discharge Discharge Medications: Stop taking the following medications: Meloxicam (Mobic) 15 MG TABLET ORAL DAILY as needed for pain Qty = 15 Oxycodone HCl/Acetaminophen (Percocet 5-325 MG Tablet) 5 MG-325 MG TABLET ORAL EVERY SIX HOURS NEEDED as needed for PAIN Qty = 16 Continue taking these medications: Alprazolam (Xanax) 0.25 MG TABLET 1 Tablet ORAL DAILY as needed for anxiety Qty = 4 Amoxicillin/Potassium Clav (Augmentin 875-125 Tablet) 875 MG-125 MG TABLET 1 Tablet ORAL TWICE DAILY Qty = 20
[2018-04-01 14:29] VITALS: BP 102/70
--- NOTE | 2018-04-01 14:43 | NUCLEAR MEDICINE REPORT ---
EXAMINATION: PULMONARY VENTILATION PERFUSION STUDY CLINICAL INFORMATION: PE on CTA with shortness of breath. Assess for pulmonary embolism. COMPARISON: CTA 03/29/2018. TECHNIQUE: Serial gamma scintillation camera images were obtained over the posterior chest during the single breath, equilibrium rebreathing and washout of 9.6 mCi Xe 133 gas. The patient then received 4.3 mCi Tc-99m MAA intravenously and a 6-view perfusion study was performed. FINDINGS: Ventilation images: On the single breath and equilibrium images there is homogeneous distribution of gas bilaterally. These minimal diffuse retention on the washout images. Perfusion images: No segmental perfusion defects are present. There is homogeneous distribution of activity bilaterally. There are relatively intense punctate areas of focal activity projected over the left and right upper zones, likely due to aggregation of MAA. There are no focal anatomic appearing perfusion defects present. IMPRESSION: 1. Very low probability radionuclide lung ventilation perfusion scan for pulmonary embolus.
--- NOTE | 2018-04-01 15:15 | CT SCAN REPORT ---
EXAMINATION: CT ABDOMEN AND PELVIS WITH CONTRAST CLINICAL INFORMATION: Menometrorrhagia and possible pulmonary embolism. Evaluate for malignancy. COMPARISON: CT images of the chest from 03/29/2018. CT images of the abdomen pelvis from 03/22/2018. TECHNIQUE: Multidetector volumetric imaging was performed of the abdomen and pelvis following IV administration of 95 mL of Optiray 320 intravenous contrast. Sagittal and coronal reformatted images were obtained on the technologist's workstation. DLP: 264 mGy-cm FINDINGS: LUNG BASES: 2.6 x 1.6 cm cavitary nodule of the left lower lobe, posteriorly, is unchanged in size compared to 03/29/2018. No pleural effusion. LIVER, GALLBLADDER, AND BILIARY TREE: Liver has normal size, contour and attenuation. Gallbladder is unremarkable. No intrahepatic or extrahepatic bile duct dilatation. PANCREAS: Unremarkable. SPLEEN: Unremarkable. ADRENAL GLANDS: Unremarkable. KIDNEYS, URETERS AND BLADDER: Kidneys are normal in size and enhance symmetrically. No renal mass, nephrolithiasis, hydroureteronephrosis or perinephric edema. Urinary bladder is normal. GASTROINTESTINAL TRACT: Stomach is unremarkable. Bowel loops are normal in size. No acute findings along the gastrointestinal tract compared to 03/22/2018. No ascites. ABDOMINAL WALL: Unremarkable. LYMPH NODES: Normal. VASCULAR: Unremarkable. PELVIC VISCERA: The uterus and ovaries are normal. No pelvic free fluid. OSSEOUS STRUCTURES: Mild dextrocurvature of the lower thoracic and lumbar spine. No suspicious bone lesions. IMPRESSION: 1. A 2.6 x 1.6 cm cavitary nodule of the left lower lobe remains unchanged compared to 03/29/2018. 2. No evidence of neoplastic disease in the abdomen or pelvis. No acute findings in the abdomen or pelvis compared to 03/22/2018.
[2018-04-01] MEDS ORDERED: HYDROXYZINE HCL25 M2 PO ×2 (15:48→16:15)
--- NOTE | 2018-04-01 20:50 | PN- Cardiology ---
Subjective Subjective: * Patient continue to report atypical cardiac discomfort and palpitations. * sinus rhythm Objective Vital Signs and I&Os Vital Signs Date Time Temp Pulse Resp B/P B/P Pulse O2 O2 Flow FiO2 Mean Ox Delivery Rate 04/01 1429 97.8 95 18 102/70 100 Room Air 04/01 0800 Room Air 04/01 0647 97.7 64 16 106/70 100 Room Air 03/31 2247 99.7 74 16 100/68 100 Room Air Intake & Output 04/01 1600 04/01 0804/01 0000 03/31 1600 03/31 0800 03/31 0000 Intake Total 567.8 777.6 977.6 400 200 600 Output Total Balance 567.8 777.6 977.6 400 200 600 Intake, IV 123.8 177.6 177.6 100 Intake, Oral 444 600 800 300 200 600 Patient 135 lb 135 lb 136 lb Weight Weight Bed scale Measurement Method Physical Exam: General: WD/WN female in NAD; alert and oriented x 3 HEENT: NC/AT, PERRL, EOMI Neck: no JVD, no carotid bruit Heart: RRR w/o murmur Lungs: clear bilaterally Abdomens: soft, NT, +ve bowel sounds Extremities: no edema Assessment/Plan Assessment/Plan * This patient has rather subtle findings of a subsemental pulmonary embolism. It is not on the side that she describes her chest discomfort and she denies shortness of breath. Nevertheless, she is a smoker and may well have a true PE. 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 * Agree with vasculitis workup as recommended by Dr. Castro. Continue telemetry? No
[2018-04-03] MEDS ORDERED: PERCOCET 5-3251 EACH PO (14:27)
== END 2018-04-01 16:46 | DRG 134 ==
LOC: ERH 10:37 → ERHI 17:15 → 1NO 17:15 → ENRESERV 17:36 → ENTRNSPT 18:15 → EDTRNSPTSTS 18:27 → EDTRNSPT 18:27 → 1NO 18:36 → CMPTRNSPT 18:49 → 1NO 03-30 07:44
PROVIDERS: Internal Medicine; Physician Assistant Medical; Student in an Organized Health Care Education/Training Program
DX: I26.99 Other pulmonary embolism without acute cor pulmonale (principal); Z87.891 Personal history of nicotine dependence; F41.9 Anxiety disorder, unspecified; F12.90 Cannabis use, unspecified, uncomplicated; N92.1 Excessive and frequent menstruation with irregular cycle
CPT/HCPCS: 1NP; 36415; 36592; 73502-RT; 74177; 78582; 81025; 82436; 86431; 87070; 87389; 93005; 93010; 93306; 93970; 96374; 96375; A9540; A9558; J1644; J2405; J3250; J7060